=== PATIENT | female | born 1985 | race Caucasian/White ===

== ENCOUNTER → 2017-10-01 12:56 | Outpatient (CLI) | payer BC, SELFPAY ==
[2017-10-01 13:20] LABS: hCG Titer Quant., Serum 33 mIU/mL (<9 non-preg)
== END ==
PROVIDERS: Visit Provider Obstetrics & Gynecology
DX: N97.9 Female infertility, unspecified (principal)
CPT/HCPCS: 36415; 84702

== ENCOUNTER → 2017-10-04 08:35 | Outpatient (CLI) | payer BC, SELFPAY ==
[2017-10-04 10:08] LABS: hCG Titer Quant., Serum 110 mIU/mL (<9 non-preg)
== END ==
PROVIDERS: Visit Provider Obstetrics & Gynecology
DX: Z34.90 Encounter for supervision of normal pregnancy, unspecified, unspecified trimester (principal)
CPT/HCPCS: 36415; 84702

== ENCOUNTER → 2017-10-22 13:59 | Outpatient (CLI) | payer BC, SELFPAY ==
[2017-10-22 20:21] LABS: Chlamydia Trachomatis by PCR Negative (Negative); Neisserai gonorrhoeae by PCR Negative (Negative); Probe Check PASS; Sample Adequacy Control PASS; Specimen Processing Control PASS
[2017-10-27 11:11] LABS: HPV Reflexed? NOT INDICATED
== END ==
PROVIDERS: Visit Provider Obstetrics & Gynecology
DX: Z34.81 Encounter for supervision of other normal pregnancy, first trimester (principal); Z12.4 Encounter for screening for malignant neoplasm of cervix; Z11.3 Encounter for screening for infections with a predominantly sexual mode of transmission
CPT/HCPCS: 87491; 87591; 88175; G0145

== ENCOUNTER → 2017-11-23 16:45 | Outpatient (CLI) | payer BC, SELFPAY ==
[2017-11-23 17:27] LABS: Color, Urine Yellow (Yellow); Glucose, Dipstick Normal (Normal); Ketone-Dipstick Negative (Negative); Leukocyte Esterase-Dipstick 500 /ul (Negative); Nitrite-Dipstick Negative (Negative); Occult Blood-Urine 10 /ul (Negative); Protein-Dipstick Negative (Negative); Specific Gravity, Urine 1.015 (1.002-1.030); Urine Bilirubin Dipstick Negative (Negative); Urine Clarity Sl. Cloudy (Clear); Urine Urobilinogen Normal (Normal)
[2017-11-23 18:03] LABS: Absolute Lymphocyte Count 1.63 X10^3/ul (0.83-4.51); Absolute Neutrophil Count 7.1 X10^3/uL (2.0-7.7); Basophil# 0.02 X10^3/uL; Basophil% 0.2 % (0-1); Eosinophil# 0.07 X10^3/uL; Eosinophils% 0.8 % (0-5); Hematocrit 35.7 % (37-47); Hemoglobin 12.3 g/dl (12.0-15.0); Lymphocyte # 1.63 X10^3/ul (4.0); Lymphocyte % 17.6 % (19-41); Mean Corp Hgb Conc 34.5 g/gl (32-36); Mean Corpuscular Hgb 31.1 pg (27.0-32.0); Mean Corpuscular Volume 90.4 fL (81-99); Mean Platelet Vol. 10.2 fl (6.2-12.0); Monocyte# 0.46 X10^3/uL; Neutrophil # 7.08 X10^3/uL (2.7-7.7); Neutrophil % 76.2 % (47-70); Platelet Count 273 K/mm3 (150-450); RBC Distribution Width CV 11.4 % (11.6-14.6); RBC Distribution Width SD 36.8 fl (35.1-43.9); Red Blood Count 3.95 M/mm3 (4.2-5.4); White Blood Count 9.3 K/mm3 (4.4-11.0)
[2017-11-23 18:18] LABS: POSITIVE COUNT NO; POSITIVE DIFFERENTIAL NO; POSITIVE MORPHOLOGY NO
[2017-11-23 18:54] LABS: Thyroid Stim Hormone (TSH) 0.09 uIU/mL (0.358-3.74)
[2017-11-24 11:12] LABS: HIV - WCH Non-Reactive (Nonreactive)
[2017-11-24 15:06] LABS: Free T3 3.1 pg/mL (2.18-3.98); T4 Free Direct 0.88 ng/dL (0.76-1.46)
[2017-11-25 16:18] LABS: HEPATITIS B SURFACE AG Negative (Negative); Hep C Antibodies 0.1 s/co ratio (0.0-0.9)
[2017-11-26 01:34] LABS: Prenatal RPR NONREACTIVE (NONREACTIVE)
== END ==
PROVIDERS: Visit Provider Obstetrics & Gynecology
DX: Z34.81 Encounter for supervision of other normal pregnancy, first trimester (principal)
CPT/HCPCS: 36415; 81002; 84439; 84443; 84481; 85025; 86703; 86762; 86803; 87340

== ENCOUNTER → 2018-03-28 | Outpatient (CLI) | payer BC, SELFPAY ==
[2018-03-28 11:02] LABS: Hematocrit 27.5 % (37-47); Hemoglobin 9.2 g/dl (12.0-15.0); Mean Corp Hgb Conc 33.5 g/gl (32-36); Mean Corpuscular Hgb 31.7 pg (27.0-32.0); Mean Corpuscular Volume 94.8 fL (81-99); Mean Platelet Vol. 9.7 fl (6.2-12.0); Platelet Count 346 K/mm3 (150-450); RBC Distribution Width CV 12.4 % (11.6-14.6); RBC Distribution Width SD 41.5 fl (35.1-43.9); Scan Indicated on CBC? Y/N NO; White Blood Count 12.4 K/mm3 (4.4-11.0)
[2018-03-28 11:03] LABS: Glucose Challenge Gest 1H 50g 86 mg/dL (70-140)
== END | disposition home or self-care (01) ==
LOC: WOBLAB 08:48
PROVIDERS: Visit Provider Obstetrics & Gynecology
DX: Z34.83 Encounter for supervision of other normal pregnancy, third trimester (principal)
CPT/HCPCS: 36415; 82950; 85027; 86850

== ENCOUNTER → 2018-05-13 16:41 | Outpatient (CLI) | payer BC, SELFPAY | PROVIDERS: Visit Provider Obstetrics & Gynecology | DX: Z36.85 Encounter for antenatal screening for Streptococcus B (principal) | CPT/HCPCS: 87081 ==

== ENCOUNTER 2018-06-26 18:40 | Inpatient (IN) | payer BC, SELFPAY ==
[2018-06-26 19:29] VITALS: BMI 24.6
[2018-06-26] MEDS: 0.9% Saline Lock 10 ML Syringe IV (19:45)
[2018-06-26 20:23] LABS: Hemoglobin 11.1 g/dl (12.0-15.0); Mean Corp Hgb Conc 33.6 g/gl (32-36); Mean Corpuscular Hgb 31.2 pg (27.0-32.0); Mean Corpuscular Volume 92.7 fL (81-99); Mean Platelet Vol. 9.5 fl (6.2-12.0); Platelet Count 317 K/mm3 (150-450); RBC Distribution Width CV 12.8 % (11.6-14.6); RBC Distribution Width SD 43.2 fl (35.1-43.9); Red Blood Count 3.56 M/mm3 (4.2-5.4); White Blood Count 11.3 K/mm3 (4.4-11.0)
[2018-06-26 20:24] LABS: Scan Indicated on CBC? Y/N NO
[2018-06-26] MEDS: miSOPROStol 25 MCG TABLET PO (20:37)
--- NOTE | 2018-06-26 21:19 | PCM.HP.OB ---
- Problem List (1) 41 weeks gestation of Status: Acute History Date of Admission: 06/26/18 Final CHOLO: 06/17/18 Final CHOLO Source: US <20 weeks Gestational age: 41 Weeks and 2 Days History of this : This is a 32 year-old, G [1], P [0], at 41 2/7 weeks gestational age admitted for induction of labor. She feels well and is without complaints. + FM. Medical History: Medical History (Last Updated 06/26/18 @ 21:27 by Daisy Love MD) History of in vitro fertilization Z98.890 failed x 1 with subsequent spontaneous conception Chronic headaches R51 Surgical History: Surgical History (Last Updated 06/26/18 @ 21:22 by Daisy Love MD) History of dental surgery Z92.89 implant - maxillary teeth Allergies amoxicillin Allergy (Verified 06/26/18 20:11) Other - yeast infection latex Allergy (Verified 06/26/18 20:11) Itching Home Medications: Home Medications Acetaminophen [Tylenol Extra Strength] 500 mg PO Q4H PRN PRN 06/26/18 Ferrous Gluconate 324 mg PO 06/26/18 Pnv,Calcium 72/Iron/Folic Acid [ Plus Tablet] 1 each PO 06/26/18 Smoking Status: Former smoker Alcohol: None Number of Fetus(es): 1 Heart Tracin, moderate variability, + accelerations, no decelerations TOCO Analysis: 2/10 min History Past Pregnancies: Past Pregnancies Delivery Date Name GA/Weeks Outcome Route Weight Infant Gender Labor Length Anesthesia Delivery Location Provider FOB Labs: Mom's Problem List Problem Status Onset Code 41 weeks gestation of Acute Z3A.41 Mom's Labs & Results 06/26/18 06/26/18 19:45 19:45 WBC 11.3 H RBC 3.56 L Hgb 11.1 L Hct 33.0 L MCV 92.7 MCH 31.2 MCHC 33.6 RDW 12.8 RDW Differential 43.2 Plt Count 317 MPV 9.5 Blood Type O NEGATIVE Antibody Screen NEGATIVE Course Did the patient receive Yes care? Labs Blood Type: O RH: NEGATIVE RPR/VDRL/Syphilis Nonreactive Rubella status Immune HbSAg Negative Date Done: 11/23/17 Chlamydia Negative Gonorrhea Negative HIV/AIDS Non-Reactive Group B Strep: Negative NIPT - 46 XX Current Obstetrical History Gestational Diabetes No Incompetent Cervix No Infertility Yes: was not taking medication currently to get IUGR No Macrosomia No Hypertension/Pre-eclampsia No Placenta Previa/Abruption No PTL/PROM No Uterine anomaly No Oligohydramnios No Polyhydramnios No Multiple gestation No Past Medical History Asthma No Diabetes No Hypertension No Heart disease No Mitral valve prolapse No Neurologic/Seizure disorder/ Yes Migraines Kidney disease No Liver disease No Varicosities No Clotting disorders/Hx of DVT No Thyroid Dysfunction No Other medical diseases No Psychiatric disorders No Major trauma No Abnormal PAP smear No Sleep apnea No Mammogram in the last 2 years No Medications Taken During Last Date/Time of Medication several months ago, pt does not know exact time Taken: [zpac] Reason for taking medication [ sinus infection zpac] Social History Marital Status: Alleged father Genaro Mckeon Hx Smoking Yes Smoking Status Former smoker Expected Infant Delivery Method: Spontaneous Vaginal Number of Visits: 13 Physical Exam Vitals: AVSS General: Alert, Oriented x3, Cooperative, No apparent distress HEENT: Atraumatic, Normocephalic Cardiovascular: Regular rate Lungs: Normal air movement Abdomen: Soft, Non Tender, Non-Distended Extremities:: No edema Neurological: Neuro grossly intact Estimated gestational size: Appropriate for gestational size Presentation: Cephalic Cervix Dilation (cm): 1 Station: -3 Effacement (%): 50 Assessment/Plan All Active Problems (Last Updated 06/26/18 @ 21:27 by Daisy Love MD) 41 weeks gestation of (Acute) This is a 32 year-old, G [1], P [0], at 41 weeks gestational age for induction of labor, Cat I FHR -Misoprostol 25mcg x 1 given. -Regular diet given Cat I FHR on misoprostol. -GBS negative -Maternal and statuses reassuring -LARC declined, form signed -Reviewed with patient r/b induction of labor and labor/delivery including but not limited to distress, pain, bleeding or hemorrhage, infection, need for operative vaginal delivery, further surgery or emergent intervention, possibly including dilation and curettage, C/S or hysterectomy. -Patient given opportunity to ask questions and questions answered to her satisfaction.
[2018-06-26] MEDS: Acetaminophen 325 MG Tablet PO (23:06)
[2018-06-27] MEDS: miSOPROStol 25 MCG TABLET PO ×2 (00:28→04:26)
--- NOTE | 2018-06-27 07:34 | PCM.PN.BLA ---
Progress Note INDUCTION OF LABOR 41 3/7 wk Cytotec overnight, last at 04:30 am States poor sleep d/t awareness of monitor and belts. Not painful and feeling only tightening AVSS EFM 110-120s avg variability. Accels. Reassuring EFM, category I, intermittent tracing UCs q2-4 min+ remain irregular CX: FT/80/-2 anterior AROM light meconium A/P: 41 3/7 wk induction , unfavorable cervix. Cytotec overnight. AROM. Begin Pitocin at 8:30 am Continue labor induction. Peds and RT to be present for delivery 2/2 meconium Light regular breakfast, then to labor liquids.
[2018-06-27] MEDS: 0.9% Saline Lock 10 ML Syringe IV (07:50)
[2018-06-27] MEDS: Lactated Ringers 1,000 ML 50 ML IV ×4 (07:53→23:58)
[2018-06-27] MEDS: Acetaminophen 325 MG Tablet PO ×3 (08:19→22:09)
[2018-06-27] MEDS: Oxytocin 30 units/NS 500 ml 30 UNITS/500 ML IV.SOLN IV (08:32)
--- NOTE | 2018-06-27 13:21 | PCM.PN.BLA ---
Progress Note LABOR PROGRESS NOTE Uncomfortable. Declines any medication at this point. AVSS pitocin at 4 mIU/min EFM category I tracing UCs q 2-4 + mins CX: 4/80/-2 anterior + caput noted. A/P: 41 3/7 wk induction. Continue pitocin reviewed options for pain relief in labor. Declines for now. Encouraged position changes.
[2018-06-27] MEDS: fentaNYL-bupivacaine (epidural) 100 ML BAG EPIDURAL ×3 (14:07→23:53)
[2018-06-27] MEDS: Ondansetron 4 MG/2 ML Vial IV (15:23)
--- NOTE | 2018-06-27 17:46 | PCM.PN.BLA ---
Progress Note LABOR PROGRESS NOTE Induction 41 3/7 wk EGA Comfortable w/ epidural AVSS Pitocin induction after AROM, Cytotec prior to AROM/Pit EFM 120s - 130s avg variability with accels. Category I tracing UCs q 2-3 mins CX: 6/80/-3 LOP Caput noted. IUPC place to guide Pitocin A/P: 41 3/7 wk induction of labor. continue Pitocin Watch for continued progress, descent. Position changes
--- NOTE | 2018-06-27 23:05 | PCM.PN.BLA ---
Progress Note LABOR PROGRESS NOTE Temp to 100.5 now 99.5 deg Tylenol given for persistent CHAPPELL. Ampicillin 2 gm IV given Pitocin at 12 mIU/min EFM: 140s with accels. Category I tracing UCs q 2-4 min coupling/tripling and spacing. CX: Much caput. LOP? 8+/soft/90/-2 A/P: 41 3/7 going on 41 4/7 wk EGA. Induction Cytotec. AROM this am at approx 7 am. Continue labor. Very slow but continued cervical change. Advised of potential for C/S delivery.
[2018-06-28] VITALS (25 sets, daily range): BP systolic 89–122; BP diastolic 42–70; PULSE 69–106; RESP 14–20; TEMP 36.2–40.3; O2SAT 95–100
--- NOTE | 2018-06-28 01:19 | PCM.PN.BLA ---
Progress Note LABOR PROGRESS NOTE 41 4/7 wk induction, Cytotec to AROM Pitocin Slow progress since 3 pm 06/27/18 to 9 1/2 cm with with persistent cervix posteriorly on exam, with significant caput no further descent Maternal fever Maternal tachycardia EFM 140s to 150s with several non repetitive late decelerations. UCs q 2 mins A/P: 41 4/7 wk . Cephalopelvic disproportion. Maternal fever, tachycardia. Advised primary C/S delivery.
--- NOTE | 2018-06-28 01:25 | PN_ITS ---
Progress Note LABOR PROGRESS NOTE 41 4/7 wk induction, Cytotec to AROM Pitocin Slow progress since 3 pm 06/27/18 to 9 1/2 cm with with persistent cervix po steriorly on exam, with significant caput no further descent Maternal fever Maternal tachycardia EFM 140s to 150s with several non repetitive late decelerations. UCs q 2 mins A/P: 41 4/7 wk . Cephalopelvic disproportion. Maternal fever, tachycardia. Advised primary C/S delivery.
[2018-06-28] MEDS: Sodium Citrate/Citric Acid 30 ML UDC PO (01:28)
--- NOTE | 2018-06-28 01:29 | PCM.DCCSEC ---
Discharge Diet: No Restrictions May resume sexual activity in: 4-6 weeks Lifting Restrictions: 20 pounds Additional Activity Instructions:: Nothing in the vagina for 4-6 weeks. You may return to work/school in 6 weeks. Change Dressing in (Days):: 7 Remove Dressing in (days):: 7 Cleanse incision/area with: Soap & Water, Keep Dressing Clean & Dry Additional Instructions: If you experience any of the following, contact your healthcare provider. Bleeding that soaks a pad every hour for 2 hours Fever 100.4 or higher Unrelieved incision or abdominal pain Swelling, redness, discharge or bleeding from your incision Problems urinating (including inability to urinate or burning while urinating). Visual changes Severe headache Flu-like symptoms Pain or redness in one of both of your breasts Pain, warmth, tenderness or swelling in your legs, especially the calf area Frequent nausea and vomiting Symptoms of depression or anxiety If you experience any of the following, call 911 or go to the nearest Emergency Room. Chest pain Problems breathing Seizure activity Partial or complete paralysis of a body part, slurred speech, weakness or drooping of the face, or a sudden inability to walk or hold your balance Allergies/Adverse Reactions: Allergies amoxicillin Allergy (Verified 06/27/18 21:58) Other yeast infection latex Allergy (Verified 06/26/18 20:11) Itching Medications to take at Discharge RX: Pnv,Calcium 72/Iron/Folic Acid [ Plus Tablet] 1 each PO 06/26/18 Docusate Sodium [Colace] 100 mg PO BID #30 capsule 06/28/18 Naproxen [Naprosyn] 250 - 500 mg PO TID PRN PRN #30 tablet 06/28/18 Oxycodone [Oxyir] 5 - 10 mg PO Q6H PRN PRN 7 Days #20 tablet 06/28/18 Polyethylene Glycol 3350 [Miralax] 17 gm PO DAILY PRN #14 packet 06/28/18 RX: Acetaminophen [Tylenol Tablet] 325 - 650 mg PO Q4H PRN PRN tablet 06/28/18 The following prescriptions were given: Oxycodone [Oxyir] 5 - 10 mg PO Q6H PRN PRN 7 Days #20 tablet PRN Reason: Mod-Severe Pain () Naproxen [Naprosyn] 250 - 500 mg PO TID PRN PRN #30 tablet PRN Reason: Mild-Mod Pain (-08/26) Polyethylene Glycol 3350 [Miralax] 17 gm PO DAILY PRN #14 packet PRN Reason: Constipation Docusate Sodium [Colace] 100 mg PO BID #30 capsule Follow-Up: Call to make an appointment with your doctor for an incision check in 1-2 weeks. You will also need a 6 week post- follow up appointment. Test results from this visit will be discussed in further detail at your follow-up appointment, if applicable. Please Follow Up With: Nery Bacon MD - [phone] When: Call to make an appointment for an incision check in 2 weeks. Proposed Discharge Date: 07/01/18
--- NOTE | 2018-06-28 01:35 | DCINST_ITS ---
Discharge Diet: No Restrictions May resume sexual activity in: 4-6 weeks Lifting Restrictions: 20 pounds Additional Activity Instructions:: Nothing in the vagina for 4-6 weeks. You may return to work/school in 6 weeks. Change Dressing in (Days):: 7 Remove Dressing in (days):: 7 Cleanse incision/area with: Soap & Water, Keep Dressing Clean & Dry Additional Instructions: If you experience any of the following, contact your healthcare provider. * Bleeding that soaks a pad every hour for 2 hours * Fever 100.4 or higher * Unrelieved incision or abdominal pain * Swelling, redness, discharge or bleeding from your incision * Problems urinating (including inability to urinate or burning while urinating). * Visual changes * Severe headache * Flu-like symptoms * Pain or redness in one of both of your breasts * Pain, warmth, tenderness or swelling in your legs, especially the calf area * Frequent nausea and vomiting * Symptoms of depression or anxiety If you experience any of the following, call 911 or go to the nearest Emergency Room. * Chest pain * Problems breathing * Seizure activity * Partial or complete paralysis of a body part, slurred speech, weakness or drooping of the face, or a sudden inability to walk or hold your balance Allergies/Adverse Reactions: Allergies amoxicillin Allergy (Verified 06/27/18 21:58) Other yeast infection latex Allergy (Verified 06/26/18 20:11) Itching Medications to take at Discharge RX: Pnv,Calcium 72/Iron/Folic Acid [ Plus Tablet] 1 each PO 06/26/18 Docusate Sodium [Colace] 100 mg PO BID #30 capsule 06/28/18 Naproxen [Naprosyn] 250 - 500 mg PO TID PRN PRN #30 tablet 06/28/18 Oxycodone [Oxyir] 5 - 10 mg PO Q6H PRN PRN 7 Days #20 tablet 06/28/18 Polyethylene Glycol 3350 [Miralax] 17 gm PO DAILY PRN #14 packet 06/28/18 RX: Acetaminophen [Tylenol Tablet] 325 - 650 mg PO Q4H PRN PRN tablet 06/28/18 The following prescriptions were given: Oxycodone [Oxyir] 5 - 10 mg PO Q6H PRN PRN 7 Days #20 tablet PRN Reason: Mod-Severe Pain () Naproxen [Naprosyn] 250 - 500 mg PO TID PRN PRN #30 tablet PRN Reason: Mild-Mod Pain (1-08/26) Polyethylene Glycol 3350 [Miralax] 17 gm PO DAILY PRN #14 packet PRN Reason: Constipation Docusate Sodium [Colace] 100 mg PO BID #30 capsule Follow-Up: Call to make an appointment with your doctor for an incision check in 1-2 weeks. You will also need a 6 week post- follow up appointment. Test results from this visit will be discussed in further detail at your follow- up appointment, if applicable. Please Follow Up With: Nery Bacon MD - [phone] When: Call to make an appointment for an incision check in 2 weeks. Proposed Discharge Date: 07/01/18
[2018-06-28] MEDS: Cefazolin 2 GM in 0.9% Normal Saline 100 ML IV (01:50)
[2018-06-28] MEDS: Oxytocin 30 units/NS 500 ml 30 UNITS/500 ML IV.SOLN 167 UNITS IV (01:59)
--- NOTE | 2018-06-28 02:00 | PLAC_PTH ---
PATIENT: ALEKS GREGORIO LOC: [facility] U#:[id number] AGE/SX: 32/F ROOM: WP005 RE06/26/[address]: Dr. Daisy Thomas MD : 1985 BED: 1 DIS: 07/01/2018 SPEC #: [id number] RECD: 06/28/18 08:07 STATUS: TIMOTHY AYUSH #: [id number] KARINA: 06/28/18 02:[address]: Nery Bacon DEPT: SURGICAL PATHOLOGY RECD BY: Reji Juarez ENTERED: 06/28/18 08:41 SP TYPE: PLACENTA OTHR DR: Dr. Daisy Thomas MD Tissues: Placenta, NOS Procedures: Surgery Specimen Level V HEADER OPERATION: Primary section PRE-OP DIAGNOSIS: Fever TISSUE SUBMITTED: Placenta MICROSCOPIC DIAGNOSIS Turk placenta (727 gm): Umbilical cord - trivascular with acute funisitis. Placental membranes - mild acute deciduitis. Placental disc - acute vasculitis of superficial placental vessels, Brandan-Gordon change, mild intravillous congestion and mild chronic decidual inflammation. AM:juliana 06/30/18 MICROSCOPIC DESCRIPTION Slides are reviewed. GROSS DESCRIPTION SPECIMEN: PLACENTA / CLINICAL INFORMATION: A. Weight: 4.15 kg B. Gestational Age: 41 weeks C. Sex: Female PLACENTAL WEIGHT (POST FIXATION): 727 gm PLACENTAL DIMENSIONS: 21 x 18 x 3 cm PLACENTAL SHAPE: Usual ovoid PLACENTAL WEIGHT FOR GESTATIONAL AGE: Over 99th percentile MEMBRANES - Present A. Insertion: Marginal B. Site of rupture from edge: At edge of placental disc C. Color of membrane: Duarte-mucoidy D. Abnormalities: None UMBILICAL CORD - Present A. Color: Duarte-portillo B. Insertion: Paracentral C. Length: 35 cm D. Diameter: 1.3 cm E. Number of vessels: Three F. Abnormalities: The umbilical cord show focal area of increased spiraling. PLACENTAL DISC - Present A. Color of surface: Duarte-portillo B. surface abnormalities: None C. Maternal cotyledons: Intact with minimal tears D. Attached retro placental clot: No clot E. Cut surface: Dark red and spongy F. Lesions: None G. Separate clot: Absent SECTIONS SUBMITTED: 1. Membrane roll 2. Cord, maternal end 3. Cord, end 4. Placental disc, and maternal surfaces 5. Placental disc, and maternal surfaces 6. Placental disc, and maternal surfaces SJ:juliana 06/29/18 TC:2 CPT: 37076
[2018-06-28] MEDS: Methylergonovine 0.2 MG/ML Ampul IM (02:02)
--- NOTE | 2018-06-28 02:24 | PCM.OPRPT ---
Delivery Classification: LUIS FERNANDO Final CHOLO: 06/17/18 Final CHOLO Source: US <20 weeks Gestational age: 41 Weeks and 4 Days Indications: CPD. no descent Findings: At amniotomy, moderate meconium stained fluid was noted. Turk viable female in vertex presentation. unengaged in maternal pelvis Persistent OP. significant capt noted Apgars 6/8/9, Baby weight: 9# 2 oz There was a normal appearing uterus, fallopian tubes and ovaries bilaterally. Description of Procedure: PATH: Routine cord blood for typing collected. Routine cord gases were sent. Narrative account: After the risks, benefits and alternatives of the procedure were reviewed with the patient, informed consent was obtained. The patient was taken to the Operating room with an IV running, Dowling catheter in place and epidural catheter in place. She was positioned in dorsal supine position, and was briefly frog-legged for vaginal vault prep and and then repositioned to dorsal supine position with leftward displacement of the uterus, and prepped and draped in the usual sterile fashion. Once the epdiural was deemed adequate, a Pfannenstiel skin incision was created using the knife . The incision was carried down to the rectus fascia using the knife. The fascia was nicked in the midline. The fascial incision was extended bilaterally using curved Royal scissors. The superior aspect of the fascial incision was grasped with Esperanza clamps and tented up and the underlying rectus abdominal muscles were dissected free. In a similar manner, the inferior aspect of the facial incision was grasped with Esperanza clamps tented up and the underlying rectus abdominal muscles were dissected free. The rectus abdominis muscles were in the midline and the peritoneum was identified and entered by blunt dissection high in the incision. The peritoneum was stretched laterally and a bladder blade was inserted. The bladder was edematous but retracted back out of the way. The uterine incision was then created using Metzenbaum scissors. The operators fingertips were used to extend the uterine incision by blunt dissection in a caudad- cephalad orientation . Meconium stained fluid was noted at amniotomy. The vertex was then delivered atraumatically through the incision from OP position. The OP and nares were bulb suctioned on the abdomen. The shoulders delivered easily . The cord clamped x two and cut. And the infant was handed off to the nurse awaiting delivery after briefly showing her to her parents. The baby had a spontaneous cry. A segment of the umbilical cord was clamped off then. The placenta was delivered. The uterus was exteriorized and cleared of clots and debris . The needle punch machine operator helper's gloves were changed. The uterine incision was repaired with 1 Vicryl in a running locked fashion. A second imbricating layer was then placed, using 1 Monocryl in running nonlocked fashion. Bovie cautery was used to treat any bleeding areas . At this point the uterus was returned to the abdominal cavity. The gutters were cleared of clots and debris and the incision at the uterus was inspected. The pelvis and abdomen were copiously irrigated. Maine was applied along the entire incision for continued hemostasis. Excellent hemostasis was noted. The peritoneal edges were reapproximated in the midline along with the rectus abdominis muscles with a series of vertical mattress stitches of 1-0 Vicryl. This layer was copiously irrigated. Maine was applied to this layer. The fascia was closed in a running nonlocked fashion with a Stratofix. The Subcutaneous fatty tissue was copiously irrigated. Maine was dusted at this layer to prevent seroma formation. This layer was then reapproximated in a single layer closure of running 3-0 Vicryl to eliminate space. The skin edges were closed in a Subcuticular stitch of 4-0 Monocryl. The incision was cleansed. Cavilon, Steristrips, and Mepilex dressing were applied to the skin . The patient was then transferred to the recovery room bed in stable condition after tolerating the procedure well. Sponge, lap, needle and instrument counts correct times two. Medications given preop and intraoperatively included: Ancef 2 gm IV given application architect to the operating room. the patient also received gentamicin IV prior to the OR due to maternal fever (she had already been given Ampicillin 2 gm IV earlier in labor for lower gr temp) The patient received Pitocin given IV after cord clamp, Methergine 0.2 gm IM in R thigh for uterine atony , and Toradol 30 mg IV times one. For a complete listing of medications given preop and intraoperatively, please see the anesthesia record. Amniotic Membrane Rupture Type: Artificial Amniotic Fluid Description: Clear Placenta Disposition: Sent to Pathology Specimen(s) sent to pathology: cord blood, gases, cord blood cultures Drain: Dowling to straight drain Fluids Replaced: LR Cord Entanglement: None Cord Vessel Description: 3 Vessels Esitmated Blood Loss (ml): 800 Infant Gender: Female (1 minute): 6 (5 minute): 8 Delayed cord clamping: No Pre-op Antibiotic Given: Ancef 2 grams IV x1 - Getamicin IV Pt instructed on risks of surgery: Bleeding, Infection Complications: None - Admit VTE Documentation VTE Present on Admission: No VTE Mechan Device Prophylaxis: SCD's VTE Pharm Prophylaxis ordered?: No
--- NOTE | 2018-06-28 02:35 | OP.PCM_ITS ---
Delivery Classification: LUIS FERNANDO Final CHOLO: 06/17/18 Final CHOLO Source: US <20 weeks Gestational age: 41 Weeks and 4 Days Indications: CPD. no descent Findings: At amniotomy, moderate meconium stained fluid was noted. Turk viable female in vertex presentation. unengaged in maternal pelvis Persistent OP. significant capt noted Apgars 6/8/9, Baby weight: 9# 2 oz There was a normal appearing uterus, fallopian tubes and ovaries bilaterally. Description of Procedure: PATH: Routine cord blood for typing collected. Routine cord gases were sent. Narrative account: After the risks, benefits and alternatives of the procedure were reviewed with the patient, informed consent was obtained. The patient was taken to the Operating room with an IV running, Dowling catheter in place and epidural catheter in place. She was positioned in dorsal supine position, and was briefly frog- legged for vaginal vault prep and and then repositioned to dorsal supine position with leftward displacement of the uterus, and prepped and draped in the usual sterile fashion. Once the epdiural was deemed adequate, a Pfannenstiel skin incision was created using the knife . The incision was carried down to the rectus fascia using the knife. The fascia was nicked in the midline. The fascial incision was extended bilaterally using curved Royal scissors. The superior aspect of the fascial incision was grasped with Esperanza clamps and tented up and the underlying rectus abdominal muscles were dissected free. In a similar manner, the inferior aspect of the facial incision was grasped with Esperanza clamps tented up and the underlying rectus abdominal muscles were dissected free. The rectus abdominis muscles were in the midline and the peritoneum was identified and entered by blunt dissection high in the incision. The peritoneum was stretched laterally and a bladder blade was inserted. The bladder was edematous but retracted back out of the way. The uterine incision was then created using Metzenbaum scissors. The operators fingertips were used to extend the uterine incision by blunt dissection in a caudad- cephalad orientation . Meconium stained fluid was noted at amniotomy. The vertex was then delivered atraumatically through the incision from OP position. The OP and nares were bulb suctioned on the abdomen. The shoulders delivered easily . The cord clamped x two and cut. And the was handed off to the nurse awaiting delivery after briefly showing her to her parents. The baby had a spontaneous cry. A segment of the umbilical cord was clamped off then. The placenta was delivered. The uterus was exteriorized and cleared of clots and debris . The napkin machine operator's gloves were changed. The uterine incision was repaired with 1 Vicryl in a running locked fashion. A second imbricating layer was then placed, using 1 Monocryl in running nonlocked fashion. Bovie cautery was used to treat any bleeding areas . At this point the uterus was returned to the abdominal cavity. The gutters were cleared of clots and debris and the incision at the uterus was inspected. The pelvis and abdomen were copiously irrigated. Maine was applied along the entire incision for continued hemostasis. Excellent hemostasis was noted. The peritoneal edges were reapproximated in the midline along with the rectus abdominis muscles with a series of vertical mattress stitches of 1-0 Vicryl. This layer was copiously irrigated. Maine was applied to this layer. The fascia was closed in a running nonlocked fashion with a Stratofix. The Subcutaneous fatty tissue was copiously irrigated. Maine was dusted at this layer to prevent seroma formation. This layer was then reapproximated in a single layer closure of running 3-0 Vicryl to eliminate space. The skin edges were closed in a Subcuticular stitch of 4-0 Monocryl. The incision was cleansed. Cavilon, Steristrips, and Mepilex dressing were applied to the skin . The patient was then transferred to the recovery room bed in stable condition after tolerating the procedure well. Sponge, lap, needle and instrument counts correct times two. Medications given preop and intraoperatively included: Ancef 2 gm IV given clinical rehabilitation coordinator to the operating room. the patient also received gentamicin IV prior to the OR due to maternal fever (she had already been given Ampicillin 2 gm IV earlier in labor for lower gr temp) The patient received Pitocin given IV after cord clamp, Methergine 0.2 gm IM in R thigh for uterine atony , and Toradol 30 mg IV times one. For a complete listing of medications given preop and intraoperatively, please see the anesthesia record. Amniotic Membrane Rupture Type: Artificial Amniotic Fluid Description: Clear Placenta Disposition: Sent to Pathology Specimen(s) sent to pathology: cord blood, gases, cord blood cultures Drain: Dowling to straight drain Fluids Replaced: LR Cord Entanglement: None Cord Vessel Description: 3 Vessels Esitmated Blood Loss (ml): 800 Infant Gender: Female (1 minute): 6 (5 minute): 8 Delayed cord clamping: No Pre-op Antibiotic Given: Ancef 2 grams IV x1 - Getamicin IV Pt instructed on risks of surgery: Bleeding, Infection Complications: None - Admit VTE Documentation VTE Present on Admission: No VTE Mechan Device Prophylaxis: SCD's VTE Pharm Prophylaxis ordered?: No
--- NOTE | 2018-06-28 02:35 | NURSING ---
gallegos cath leaking from bag. gallegos cath d/c'd and replaced with 16 F latex free gallegos cath, balloon inflated with 10cc NS. pt tolerated well
--- NOTE | 2018-06-28 03:44 | NURSING ---
pt diaphoretic and eating ice chips, suspect temporal temp and oral temp reading lower then actual temperature
[2018-06-28] MEDS: Acetaminophen 325 MG Tablet PO (03:46)
--- NOTE | 2018-06-28 05:31 | NURSING ---
fundus noted to be firm 1 above umbilicus and displaced to the right. moderate amts of lochia noted with fundal check. fundus then returned to umbilicus. pads weighed for 248ml
[2018-06-28] MEDS: HYDROmorphone 0.5 MG/0.5 ML SYRINGE IV (06:12)
[2018-06-28 06:28] LABS: Absolute Lymphocyte Count 0.64 X10^3/ul (0.83-4.51); Absolute Neutrophil Count 19.2 X10^3/uL (2.0-7.7); Basophil# 0.02 X10^3/uL; Basophil% 0.1 % (0-1); Hematocrit 35.2 % (37-47); Hemoglobin 11.7 g/dl (12.0-15.0); Lymphocyte # 0.64 X10^3/ul (4.0); Lymphocyte % 2.9 % (19-41); Mean Corp Hgb Conc 33.2 g/gl (32-36); Mean Corpuscular Hgb 31.4 pg (27.0-32.0); Mean Corpuscular Volume 94.4 fL (81-99); Mean Platelet Vol. 9.7 fl (6.2-12.0); Neutrophil # 19.19 X10^3/uL (2.7-7.7); Neutrophil % 86.8 % (47-70); Platelet Count 292 K/mm3 (150-450); RBC Distribution Width CV 12.6 % (11.6-14.6); RBC Distribution Width SD 41.9 fl (35.1-43.9); Red Blood Count 3.73 M/mm3 (4.2-5.4); White Blood Count 22.1 K/mm3 (4.4-11.0)
[2018-06-28 06:33] LABS: Differential Indicated SCAN CRITERIA MET; POSITIVE COUNT NO; POSITIVE DIFFERENTIAL YES; POSITIVE MORPHOLOGY NO
[2018-06-28 06:51] LABS: Platelet Estimate ADEQUATE (ADEQ)
[2018-06-28] MEDS: Ketorolac 30 MG/ML Syringe IV ×3 (06:51→19:51)
[2018-06-28 06:52] LABS: Anisocytosis RARE; Macrocytosis RARE; Toxic Granulation RARE
--- NOTE | 2018-06-28 07:40 | PN.OBGYN_ITS ---
Patient Problems: Active and Suspected Problems (Last Updated 06/26/18 @ 21:27 by Daisy Thomas MD) 41 weeks gestation of (Acute) Subjective: Day of Delivery Primary C/S CPD Fever in labor Feeling much better. Baby is nursing well. Pain control ok. Got an additional dose of Dilaudid for pain after C/S. RN states she expressed a clot and 240 cc EBL with that. Bleeding now much better. - Physical Exam General: Alert, Oriented x3, Cooperative, No apparent distress HEENT: Atraumatic Neck: Supple Abdomen: Soft - Fundus firm , minimally tender c/w postop status and 1-2 cm inferior to umbilicus. Upper abdomen softly distended and tympanitic Skin: Incision - Mepilex CDI. Neurological: Cranial nerves II-XII grossly intact Psych/Mental Status: Normal Affect Vital Signs Temp Pulse Resp BP Pulse Ox 98.5 F 86 16 111/69 99 06/28/18 07:00 06/28/18 07:00 06/28/18 07:00 06/28/18 07:00 06/28/18 07:00 Oxygen Delivery Method Room Air Weight: 75.75 kg Body Mass Index (BMI) 24.6 Intake and Output for Last 24 Hours 06/26/18 06/27/18 06/28/18 23:59 23:59 23:59 Intake Total 2124 / 2124 1310 / 1310 Output Total 925 / 925 650 / 650 Balance 1199 / 1199 660 / 660 Laboratory Tests Past 24 Hrs 06/28/18 03:55 WBC 22.1 H RBC 3.73 L Hgb 11.7 L Hct 35.2 L MCV 94.4 MCH 31.4 MCHC 33.2 RDW 12.6 RDW Differential 41.9 Plt Count 292 MPV 9.7 Immature Gran % (Auto) 0.200 Neut % (Auto) 86.8 H Lymph % (Auto) 2.9 L Bacon % (Auto) 10.0 Eos % (Auto) 0.0 Baso % (Auto) 0.1 Absolute Neuts (auto) 19.2 H Absolute Lymphs (auto) 0.64 L Total Counted Not Reportable Differential Comment SEE COMMENT Diff Path Review May foll Toxic Granulation RARE Platelet Estimate ADEQUATE Anisocytosis RARE Macrocytosis RARE Medical Necessity - Tobacco Use Smoking Status: Former smoker Assessment/Plan All Active Problems (Last Updated 06/26/18 @ 21:27 by Daisy Love MD) 41 weeks gestation of (Acute) Day of Delivery Primary C/S Maternal fever in labor and T max after delivery of 104 during recovery. CBC ordered with reactive leukocytosis noted. Placenta sent for path at [facility] and Cord blood and gases sent along with cord blood for culture. Blood cultures x two also ordered Ancef and Clindamycin ordered, and will continue today. Pending cultures and observation of fever curve. Consider daily Gentamicin if further T max. AVSS at present. ABX given including: ampicillin in labor. Ancef and Gentamicin prior to C/S. Clindamycin added postop for T max during recovery. Continuing Ancef. Repeat CBC POD#1 Continue Dowling and IV today. Continue care f.
[2018-06-28] MEDS: proMETHazine 25 MG/ML Syringe 12.5 MG IV (07:44)
[2018-06-28] MEDS: Cefazolin 1 GM/50 ML BAG IV ×2 (10:46→18:02)
[2018-06-28 13:50] LABS: Pathologist Review Reviewed
[2018-06-28] MEDS: Prenatal Vits Tablet 1 TABLET PO (14:06)
[2018-06-28] MEDS: Lactated Ringers 1,000 ML 100 ML IV (14:28)
[2018-06-28] MEDS: Acetaminophen 500 MG Tablet 1000 MG PO (20:48)
[2018-06-29 00:25] VITALS: PULSE 86; RESP 16; O2SAT 100
[2018-06-29] MEDS: Lactated Ringers 1,000 ML 100 ML IV (00:56)
[2018-06-29] MEDS: Ketorolac 30 MG/ML Syringe IV ×4 (00:57→19:39)
[2018-06-29 01:13] VITALS: BP 98/56; PULSE 81; RESP 16; TEMP 36.7; O2SAT 99
[2018-06-29 02:00] VITALS: PULSE 88; RESP 16; O2SAT 97
[2018-06-29] MEDS: oxyCODONE 5 MG Tablet PO ×5 (03:40→23:56)
[2018-06-29] MEDS: 0.9% Saline Lock 10 ML Syringe IV ×6 (05:23→19:39)
[2018-06-29 05:41] LABS: Hematocrit 27.2 % (37-47); Mean Corp Hgb Conc 33.1 g/gl (32-36); Mean Corpuscular Hgb 31.1 pg (27.0-32.0); Mean Corpuscular Volume 94.1 fL (81-99); Mean Platelet Vol. 9.1 fl (6.2-12.0); Platelet Count 264 K/mm3 (150-450); RBC Distribution Width CV 13.1 % (11.6-14.6); RBC Distribution Width SD 44.8 fl (35.1-43.9); Red Blood Count 2.89 M/mm3 (4.2-5.4); White Blood Count 23.9 K/mm3 (4.4-11.0)
[2018-06-29 05:43] LABS: Scan Indicated on CBC? Y/N NO
[2018-06-29 08:00] VITALS: BP 90/50; PULSE 89; RESP 18; TEMP 37.6
--- NOTE | 2018-06-29 08:07 | PN.OBGYN_ITS ---
Patient Problems: Active and Suspected Problems (Last Updated 06/26/18 @ 21:27 by Daisy Thomas MD) 41 weeks gestation of (Acute) Subjective: POD#1 Primary C/S. Prolonged labor. maternal fever and tachycardia in labor. Now with persistent and increasing leukocytosis. Likely chorioamnionitis in labor (final testing pending) AND now with persistent endomyometritis. Pain control adequate. nursing well. No concerns voiced. Dowling out for voiding trial. IV to Saline lock. Objective: Holding and nursing baby Wincing a little and grasps her L shoulder. (shoulder pain on R and L sides likely to room air under diaphragm after surgery -- advised of cause and will resolve) - Physical Exam General: Alert, Oriented x3, Cooperative, No apparent distress HEENT: Atraumatic Neck: Supple Abdomen: Soft - Fundus firm tender at approx 2 cm inferior to umbilicus Skin: Incision - Mepilex on, CDI. no erythema surrounding dressing Psych/Mental Status: Normal Affect Vital Signs Temp Pulse Resp BP Pulse Ox 98.0 F 88 16 98/56 L 97 06/29/18 01:13 06/29/18 02:00 06/29/18 02:00 06/29/18 01:13 06/29/18 02:00 Oxygen Delivery Method Room Air Weight: 75.75 kg Body Mass Index (BMI) 24.6 Intake and Output for Last 24 Hours 06/27/18 06/28/18 06/29/18 23:59 23:59 23:59 Intake Total 2124 / 2124 3102 / 3102 1103 / 1103 Output Total 925 / 925 1450 / 1450 1000 / 1000 Balance 1199 / 1199 1652 / 1652 103 / 103 Laboratory Tests Past 24 Hrs 06/28/18 06/28/18 06/29/18 03:55 03:55 05:30 WBC 23.9 H RBC 2.89 L Hgb 9.0 L Hct 27.2 L MCV 94.1 MCH 31.1 MCHC 33.1 RDW 13.1 RDW Differential 44.8 H Plt Count 264 MPV 9.1 Diff Path Review Reviewed Screen NEGATIVE Baby's Blood Type O POSITIVE Baby's ELICIA NEGATIVE Medical Necessity - Tobacco Use Smoking Status: Former smoker Assessment/Plan All Active Problems (Last Updated 06/26/18 @ 21:27 by Daisy Love MD) 41 weeks gestation of (Acute) POD#1 Primary C/S 1. Maternal fever in labor and T max after delivery of 104.5 during recovery. Remains AFEB since then BUT with persistently elevated WBCs. Advised pt that her likely diagnosis chorioamnionitis in labor and persistent endomyometritis But final studies pending. CBC ordered for POD#2 to reassess response of WBCs to additional antibiotics to be added today. Placenta sent for path at [facility] and cord blood for culture-- pending Blood cultures x two also ordered -- Pending Ancef and Clindamycin ordered, and will continue today. Add daily Gentamicin due to persistent and increasing leukocytosis. 2. Postoperative , acute blood loss anemia. Iron supplement to be started today RhoGAM given Continue care
[2018-06-29] MEDS: Senna/Docusate Sodium 1 Tablet PO (08:34)
[2018-06-29] MEDS: Prenatal Vits Tablet 1 TABLET PO (10:55)
[2018-06-29] MEDS: Ferrous Sulfate 325 MG Tablet PO ×2 (10:55→18:31)
[2018-06-29 14:00] VITALS: BP 92/53; PULSE 94; RESP 16; TEMP 37.1
[2018-06-29 19:44] VITALS: BP 95/56; PULSE 99; RESP 16; TEMP 37.7; O2SAT 98
[2018-06-30] MEDS: Ketorolac 30 MG/ML Syringe IV (01:39)
[2018-06-30] MEDS: 0.9% Saline Lock 10 ML Syringe IV ×3 (01:39→22:03)
[2018-06-30 01:44] VITALS: BP 95/54; PULSE 91; RESP 14; TEMP 37.2; O2SAT 98
[2018-06-30] MEDS: Senna/Docusate Sodium 1 Tablet PO (04:39)
[2018-06-30 05:22] LABS: Hemoglobin 8.4 g/dl (12.0-15.0); Mean Corp Hgb Conc 32.3 g/gl (32-36); Mean Corpuscular Hgb 31.2 pg (27.0-32.0); Mean Corpuscular Volume 96.7 fL (81-99); Mean Platelet Vol. 8.8 fl (6.2-12.0); Platelet Count 307 K/mm3 (150-450); RBC Distribution Width CV 12.7 % (11.6-14.6); RBC Distribution Width SD 42.9 fl (35.1-43.9); Red Blood Count 2.69 M/mm3 (4.2-5.4); White Blood Count 14.8 K/mm3 (4.4-11.0)
[2018-06-30 05:26] LABS: Scan Indicated on CBC? Y/N NO
[2018-06-30 07:40] VITALS: BP 115/48; PULSE 85; RESP 18; TEMP 37.2; O2SAT 100
[2018-06-30] MEDS: oxyCODONE 5 MG Tablet PO ×3 (08:02→18:11)
--- NOTE | 2018-06-30 08:34 | PN.OBGYN_ITS ---
Patient Problems: Active and Suspected Problems (Last Updated 06/26/18 @ 21:27 by Daisy Thomas MD) 41 weeks gestation of (Acute) Subjective: POD#2 Primary C/S for CPD. prolonged labor, materal temp and tachycardia in labor. Postop endomyometritis States abdomen sore, especially over uterus. relates much pain with examinations. Continues to nurse. No concerns voiced otherwise. States still gassy. Plans to stay and encouraged this to allow continued antibiotics now. - Physical Exam General: Alert, Oriented x3, Cooperative, No apparent distress HEENT: Atraumatic Neck: Supple Abdomen: Soft - No rebound. Much voluntary guarding. Uterus tender to palpation, Firm at 2 cm inferior to umbilicus Skin: Incision - Mepilex CDI. no erythema of skin surrounding dressing. Psych/Mental Status: Normal Affect Vital Signs Temp Pulse Resp BP Pulse Ox 99 F 85 18 115/48 L 100 06/30/18 07:40 06/30/18 07:40 06/30/18 07:40 06/30/18 07:40 06/30/18 07:40 Oxygen Delivery Method Room Air Weight: 75.75 kg Body Mass Index (BMI) 24.6 Intake and Output for Last 24 Hours 06/28/18 06/29/18 06/30/18 23:59 23:59 23:59 Intake Total 3102 / 3102 2012.5 / 2013.5 Output Total 1450 / 1450 2650 / 2650 Balance 1652 / 1652 -636.5 / -636.5 Laboratory Tests Past 24 Hrs 06/30/18 05:05 WBC 14.8 H RBC 2.69 L Hgb 8.4 L Hct 26.0 L MCV 96.7 MCH 31.2 MCHC 32.3 RDW 12.7 RDW Differential 42.9 Plt Count 307 MPV 8.8 Medical Necessity - Tobacco Use Smoking Status: Former smoker Assessment/Plan All Active Problems (Last Updated 06/26/18 @ 21:27 by Daisy Love MD) 41 weeks gestation of (Acute) POD#2 Primary C/S 1. Maternal fever in labor and T max after delivery of 104.5 during recovery. Remains AFEB since CBC this am with normalizing WBCs after Gentatmicin added, daily dosing. Placenta sent for path at [facility] and cord blood for culture-- pending Blood cultures x two also ordered -- Pending Gent and Clindamycin will continue Repeat CBC on POD#3 planned. 2. Postoperative , acute blood loss anemia. Iron supplement started. Slow downward drift. repeat CBC POD#3 RhoGAM given Continue care
[2018-06-30] MEDS: Ferrous Sulfate 325 MG Tablet PO ×2 (12:35→16:32)
[2018-06-30] MEDS: Prenatal Vits Tablet 1 TABLET PO (12:35)
[2018-06-30 13:28] VITALS: BP 99/59; PULSE 92; RESP 16; TEMP 37.1
[2018-06-30 13:29] VITALS: BP 108/61
[2018-06-30 19:58] VITALS: BP 101/56; PULSE 96; RESP 14; TEMP 37.2; O2SAT 100
[2018-07-01] MEDS: Naproxen 250 MG Tablet PO ×2 (01:42→09:45)
[2018-07-01] MEDS: oxyCODONE 5 MG Tablet PO ×2 (01:43→09:28)
[2018-07-01 04:00] VITALS: BP 113/59; PULSE 73; RESP 16; TEMP 36.6
[2018-07-01] MEDS: 0.9% Saline Lock 10 ML Syringe IV (04:06)
--- NOTE | 2018-07-01 04:55 | PCM.DC.SUM ---
Discharge Date and Diagnosis - Problem List Patient Problems: Active and Suspected Problems (Last Updated 06/26/18 @ 21:27 by Daisy Love MD) 41 weeks gestation of (Acute) Date of Admission: 06/26/18 - 41 3/7 wk induction Date of Discharge: 06/30/18 - primary C/s for CPD - Primary Discharge Diagnosis Active and Suspected Problems (Last Updated 06/26/18 @ 21:27 by Daisy Love MD) 41 weeks gestation of (Acute) Hospital Course and Treatment Operations: - - cytotec, AROM, pitocin induction. Primary C/S for CPD. Summary of Care Provided: The patient is a 32 year old female presents for scheduled induction of labor at 41 3/7 wk wiht unfavorable cervix. Admitted for cytotec. AROM and pitocin. Progressed to approx 9 cm over very prolonged course. Maternal fever in labor. No further descent noted. Taken to OR for C/S for CPD. Delivered a us viable female, unengaged in maternal pelvis and persistent OP. Baby's Apgars 6/8/9, Baby weight: 9# 2 oz Normal pelvic anatomy. Placenta sent for path at [facility]. Postoperative fever to 104.5 degrees. Blood cultures x two ordered (later returned as negative). Patient on Ancef and Gentamicin. preop. Ancef continued for 24 hr postop. Due to fevers and persistently elevated, increasing WBCs Clindamycin and Gentamicin continued for endomyometritis. With the resumption of Gentamicin postoperative day #1, her leukocytosis began to resolve. Acute blood loss anemia --.Hgb 11.1 g/dl on admission, dropped to 9 g/dl immediately postop to 8.4 g/dl by POD#2. Started on iron bid Postoperative course otherwise uneventful and patient discharged home on POD#3 RTO in 2 wk for postop appointment Patient Problems: Active and Suspected Problems (Last Updated 06/26/18 @ 21:27 by Daisy Love MD) 41 weeks gestation of (Acute) - Physical Exam Vital Signs Temp Pulse Resp BP Pulse Ox 97.9 F 73 16 113/59 L 100 07/01/18 04:00 07/01/18 04:00 07/01/18 04:00 07/01/18 04:00 06/30/18 19:58 Oxygen Delivery Method Room Air Weight: 75.75 kg Body Mass Index (BMI) 24.6 Intake and Output for Last 24 Hours 06/29/18 06/30/18 07/01/18 23:59 23:59 23:59 Intake Total 2012.5 / Output Total 2650 / 2650 Balance -636.5 / -636.5 Microbiology Past 72 Hours 06/28/18 04:10 Blood Culture - Preliminary Blood Culture (Wb) - No Site/Description Given No growth in 48 hours. 06/28/18 03:55 Blood Culture - Preliminary Blood Culture (Wb) - Anticubital Left No growth in 48 hours. Laboratory Tests Past 24 Hrs 06/30/18 05:05 WBC 14.8 H RBC 2.69 L Hgb 8.4 L Hct 26.0 L MCV 96.7 MCH 31.2 MCHC 32.3 RDW 12.7 RDW Differential 42.9 Plt Count 307 MPV 8.8 Discharge Diet: No Restrictions May resume sexual activity in: 4-6 weeks Additional Activity Instructions:: Nothing in the vagina for 4-6 weeks. You may return to work/school in 6 weeks. Change Dressing in (Days):: 7 Remove Dressing in (days):: 7 Cleanse incision/area with: Soap & Water, Keep Dressing Clean & Dry Home Medications: Medications to take at Discharge Pnv,Calcium 72/Iron/Folic Acid [ Plus Tablet] 1 each PO 06/26/18 Acetaminophen [Tylenol Tablet] 325 - 650 mg PO Q4H PRN PRN tablet 06/28/18 Docusate Sodium [Colace] 100 mg PO BID #30 capsule 06/28/18 Naproxen [Naprosyn] 250 - 500 mg PO TID PRN PRN #30 tablet 06/28/18 Oxycodone [Oxyir] 5 - 10 mg PO Q6H PRN PRN 7 Days #20 tablet 06/28/18 Polyethylene Glycol 3350 [Miralax] 17 gm PO DAILY PRN #14 packet 06/28/18 Following Prescrptions Were Given to Patient: Oxycodone [Oxyir] 5 - 10 mg PO Q6H PRN PRN 7 Days #20 tablet PRN Reason: Mod-Severe Pain (-01/26) Naproxen [Naprosyn] 250 - 500 mg PO TID PRN PRN #30 tablet PRN Reason: Mild-Mod Pain (-08/26) Polyethylene Glycol 3350 [Miralax] 17 gm PO DAILY PRN #14 packet PRN Reason: Constipation Docusate Sodium [Colace] 100 mg PO BID #30 capsule Please Follow Up With: Nery Bacon MD - [phone] When: Call to make an appointment for an incision check in 2 weeks. Medical Necessity - Tobacco Use Smoking Status: Former smoker Meaningful Use Info Meaningful Use Diagnoses (Choose all that apply): None applicable
--- NOTE | 2018-07-01 07:27 | PN.OBGYN_ITS ---
Patient Problems: Active and Suspected Problems (Last Updated 06/26/18 @ 21:27 by Daisy Thomas MD) 41 weeks gestation of (Acute) Subjective: POD#3 Primary C/S BPD. Endomyometritis. Doing OK. More painful after incident with tummy band yesterday. Trying to rest, coordinate sleeping when baby is sleeping. Likely will still want to go home later today. Breast feeding Objective: Lying , resting on L side. - Physical Exam General: Alert, Oriented x3, Cooperative, No apparent distress HEENT: Atraumatic Neck: Supple Abdomen: Soft - Fundus firm and less tender, inferior to umbilicus Skin: Incision - Mepilex dressing intact, dry. Psych/Mental Status: Normal Affect Vital Signs Temp Pulse Resp BP Pulse Ox 97.9 F 73 16 113/59 L 100 07/01/18 04:00 07/01/18 04:00 07/01/18 04:00 07/01/18 04:00 06/30/18 19:58 Oxygen Delivery Method Room Air Weight: 75.75 kg Body Mass Index (BMI) 24.6 Intake and Output for Last 24 Hours 06/29/18/07/01/18 23:59 23:59 23:59 Intake Total 2013.5 / 2013.5 Output Total 2650 / 2650 Balance -636.5 / -636.5 Microbiology Past 72 Hours 06/28/18 04:10 Blood Culture - Preliminary Blood Culture (Wb) - No Site/Description Given No growth in 48 hours. 06/28/18 03:55 Blood Culture - Preliminary Blood Culture (Wb) - Anticubital Left No growth in 48 hours. Medical Necessity - Tobacco Use Smoking Status: Former smoker Assessment/Plan All Active Problems (Last Updated 06/26/18 @ 21:27 by Daisy Love MD) 41 weeks gestation of (Acute) POD#3 Primary C/S 1. Maternal fever in labor and T max after delivery of 104.5 during recovery. Remains AFEB since CBC this am with normalizing WBCs after Gentatmicin added, daily dosing. Placenta sent for path at [facility] -- Blood cultures x two -- no growth Gent and Clindamycin will continue until dischg, likely today Repeat CBC planned and pending 2. Postoperative , acute blood loss anemia. Iron supplement started. Slow downward drift. repeat CBC today RhoGAM given Continue care Likely dischg home today RTO in 2 wk for postop check up
[2018-07-01 07:43] LABS: Pathology Specimen OB SEE PATHOLOGY REPORT
[2018-07-01] MEDS: Prenatal Vits Tablet 1 TABLET PO (09:30)
[2018-07-01 09:45] VITALS: BP 111/64; PULSE 72; RESP 18; TEMP 36.7; O2SAT 96
[2018-07-01 10:07] LABS: Hematocrit 27.3 % (37-47); Mean Corpuscular Hgb 30.9 pg (27.0-32.0); Mean Corpuscular Volume 93.8 fL (81-99); Mean Platelet Vol. 8.4 fl (6.2-12.0); Platelet Count 309 K/mm3 (150-450); RBC Distribution Width CV 12.9 % (11.6-14.6); RBC Distribution Width SD 43.9 fl (35.1-43.9); Red Blood Count 2.91 M/mm3 (4.2-5.4)
[2018-07-01 10:08] LABS: Scan Indicated on CBC? Y/N NO
[2018-07-01] MEDS: Ferrous Sulfate 325 MG Tablet PO (12:59)
[2018-07-01 13:00] VITALS: BP 105/66; PULSE 90; RESP 18; TEMP 37.1; O2SAT 96
== END 2018-07-01 14:45 | disposition home or self-care (01) | DRG 787 ==
PROVIDERS: Obstetrics & Gynecology; Admitting Provider Obstetrics & Gynecology; Referring Provider Obstetrics & Gynecology; Visit Provider Obstetrics & Gynecology
DX: O65.4 Obstructed labor due to fetopelvic disproportion, unspecified (principal); O75.2 Pyrexia during labor, not elsewhere classified; O63.9 Long labor, unspecified; D62 Acute posthemorrhagic anemia; O64.0XX0 Obstructed labor due to incomplete rotation of fetal head, not applicable or unspecified; Z3A.41 41 weeks gestation of pregnancy; Z37.0 Single live birth; Z87.891 Personal history of nicotine dependence; O77.0 Labor and delivery complicated by meconium in amniotic fluid; O76 Abnormality in fetal heart rate and rhythm complicating labor and delivery; R00.0 Tachycardia, unspecified
CPT/HCPCS: 36415; 59025; 59050; 85025; 85027; 85461; 86850; 86900; 87040; 88307; 90384; 99218; J7120; A4216; G0378; J2405; J2790

== ENCOUNTER → 2019-03-31 14:31 | Outpatient (CLI) | payer BC, SELFPAY ==
[2019-03-31 18:31] LABS: Chlamydia Trachomatis by PCR Negative (Negative); Neisserai gonorrhoeae by PCR Negative (Negative); Probe Check PASS; Sample Adequacy Control PASS; Specimen Processing Control PASS
== END ==
PROVIDERS: Visit Provider Obstetrics & Gynecology
DX: Z11.3 Encounter for screening for infections with a predominantly sexual mode of transmission (principal)
CPT/HCPCS: 87491; 87591

== ENCOUNTER → 2019-04-27 15:00 | Outpatient (CLI) | payer BC, SELFPAY ==
[2019-04-27 16:58] LABS: Absolute Lymphocyte Count 1.52 X10^3/uL (0.83-4.51); Basophil# 0.03 X10^3/uL; Basophil% 0.4 % (0-1); Eosinophil# 0.03 X10^3/uL; Eosinophils% 0.4 % (0-5); Hematocrit 37.7 % (37-47); Hemoglobin 12.7 g/dL (12.0-15.0); Lymphocyte # 1.52 X10^3/ul (4.0); Lymphocyte % 19.1 % (19-41); Mean Corp Hgb Conc 33.7 g/dL (32-36); Mean Corpuscular Volume 89.1 fL (81-99); Mean Platelet Vol. 10.2 fl (6.2-12.0); Monocyte# 0.32 X10^3/uL; NRBC Flagged by Analyzer 0 % (0-5); Neutrophil % 75.6 % (47-70); Platelet Count 304 K/mm3 (150-450); RBC Distribution Width CV 12.4 % (11.6-14.6); RBC Distribution Width SD 40.2 fl (35.1-43.9); Red Blood Count 4.23 M/mm3 (4.2-5.4); White Blood Count 7.9 K/mm3 (4.4-11.0)
[2019-04-27 17:06] LABS: Color, Urine Yellow (Yellow); Glucose, Dipstick Normal (Normal); Ketone-Dipstick 5 mg/dl (Negative); Leukocyte Esterase-Dipstick 500 /ul (Negative); Nitrite-Dipstick Negative (Negative); Occult Blood-Urine 10 /ul (Negative); Protein-Dipstick 15 mg/dl (Negative); Urine Bilirubin Dipstick Negative (Negative); Urine Clarity Sl. Cloudy (Clear); Urine Urobilinogen 1 mg/dl (Normal)
[2019-04-27 17:22] LABS: Thyroid Stim Hormone (TSH) < 0.01 uIU/mL (0.358-3.74)
[2019-04-27 17:31] LABS: Amphetamine Urine VISTA NEGATIVE (<1000 ng/mL); Barbiturate Urine VISTA NEGATIVE (< 200 ng/mL); Benzodiazepine Urine VISTA NEGATIVE (< 200 ng/mL); Cocaine Urine VISTA NEGATIVE (< 300 ng/mL); Ecstacy Urine VISTA NEGATIVE (< 500 ng/mL); Methadone Urine VISTA NEGATIVE (< 300 ng/mL); PCP Urine VISTA NEGATIVE (< 25 ng/mL); THC Urine VISTA NEGATIVE (< 50 ng/mL); Vista UDS pH Range 6
[2019-04-28 10:33] LABS: HIV - WCH Non-Reactive (Nonreactive); Hepatitis B Surface Antigen Non-Reactive (Nonreactive); Hepatitis C Antibody Non-Reactive (Nonreactive); Rubella IgG 141.6 IU/mL
[2019-04-28 19:30] LABS: T4 Free Direct 1.31 ng/dL (0.76-1.46)
[2019-05-04 02:55] LABS: Prenatal RPR NONREACTIVE (NONREACTIVE)
== END ==
PROVIDERS: Visit Provider Obstetrics & Gynecology
DX: Z34.81 Encounter for supervision of other normal pregnancy, first trimester (principal)
CPT/HCPCS: 36415; 80307; 81002; 84439; 84443; 84481; 85025; 86703; 86762; 86803; 87340

== ENCOUNTER → 2019-10-17 | Outpatient (CLI) | payer BC, SELFPAY | END | disposition home or self-care (01) | LOC: LABSPEC 10-18 08:41 | PROVIDERS: Visit Provider Obstetrics & Gynecology | DX: Z36.85 Encounter for antenatal screening for Streptococcus B (principal) | CPT/HCPCS: 87081 ==

== ENCOUNTER → 2019-10-26 17:43 | Outpatient (CLI) | payer BC, SELFPAY | PROVIDERS: PCP Family Medicine; Visit Provider Obstetrics & Gynecology | DX: Z11.59 Encounter for screening for other viral diseases (principal) | CPT/HCPCS: 87635; G2023; U0003 ==

== ENCOUNTER 2019-11-02 05:05 | Inpatient (IN) | payer BC, SELFPAY ==
[2019-11-02] VITALS (16 sets, daily range): BP systolic 93–113; BP diastolic 47–67; PULSE 73–95; RESP 15–18; TEMP 36.2–37.2; O2SAT 96–99; BMI 24.3
[2019-11-02] MEDS: Lactated Ringers 1,000 ML 999 ML IV (05:37)
[2019-11-02 06:00] LABS: Absolute Lymphocyte Count 1.81 X10^3/uL (0.83-4.51); Absolute Neutrophil Count 7.9 X10^3/uL (2.0-7.7); Basophil# 0.03 X10^3/uL; Basophil% 0.3 % (0-1); Eosinophil# 0.16 X10^3/uL; Eosinophils% 1.5 % (0-5); Hematocrit 26.2 % (37-47); Hemoglobin 8.1 g/dL (12.0-15.0); Lymphocyte # 1.81 X10^3/ul (4.0); Lymphocyte % 16.8 % (19-41); Mean Corp Hgb Conc 30.9 g/dL (32-36); Mean Corpuscular Hgb 26.2 pg (27.0-32.0); Mean Corpuscular Volume 84.8 fL (81-99); Mean Platelet Vol. 9.3 fl (6.2-12.0); Monocyte# 0.82 X10^3/uL; Monocyte% 7.6 % (0-10); NRBC Flagged by Analyzer 0 % (0-5); Neutrophil # 7.85 X10^3/uL (2.7-7.7); Neutrophil % 72.8 % (47-70); Platelet Count 329 K/mm3 (150-450); RBC Distribution Width CV 14.4 % (11.6-14.6); RBC Distribution Width SD 44.3 fl (35.1-43.9); Red Blood Count 3.09 M/mm3 (4.2-5.4); White Blood Count 10.8 K/mm3 (4.4-11.0)
--- NOTE | 2019-11-02 06:10 | NURSING ---
called Dr. Alcaraz and notified him pt is supposed to get 1000mg of tylenol this morning pre-Op but pt took 500mg at 0200 this morning for a CHAPPELL. order received to only give 500mg this morning Pre-op.
[2019-11-02] MEDS: Acetaminophen 500 MG Tablet 1000 MG PO ×3 (06:16→18:43)
--- NOTE | 2019-11-02 06:32 | HP.PCM_ITS ---
History and Physical Date of Admission: 11/02/19 [facility] [place] ANTEPARTUM RECORD - HISTORY AND PHYSICAL (11/02/2019) Name: ALEKS MCKEON History of This : This is a 34-year-old who presents for repeat section. care has been otherwise uneventful. OB Physician: FRIDA 's Physician: Wilfrid ...................................................................... : 1985 Age: 34 Address: [address] [place] [address] Phone: H) [phone] (O [phone] Insurance Carrier: [employer] [facility] [id number] Emergency Contact: NANCY DE SOUZA/MOTHER [phone] ...................................................................... Final CHOLO: 11/09/19 By Ultrasound: 12 weeks 0 days PARITY: (G-Total Pregnancies P-Fullterm,Premature,Induced AB,Spont AB, Ectopics, Multiple,Living) CHOLO CONFIRMATION: By LMP: 02/07/19 Initial Exam: 11/14/19 By First Ultrasound Exam: 11/14/19 Final CHOLO: 11/09/19 OB PROBLEM LIST: Possible latex allergy. ADHD Anemic (Hgb 9.1). Start FeSO4 325 mg BID to TID. Cats Advised re cat litter and potential toxoplasmosis exposure through skin. GLOVES recommended or someone else to change litter Considering pp tubal Has rash during that resolves post . history of Headaches. used Fioricet prior Mildly hyperthyroid at 12 weeks gestation--repeat TSH with 28 week labs MSAFP and CF Testing declined. MaterniT drawn with labs today. O NEGATIVE RhoGAM at 28-29 wks EGA Prior C/S for CPD 9# 2 oz female. calculator 62% success predicted. Counselled re -APRIL or have repeat C/S at 39 wks EGA--plan R-LTCCS Quit smoking upon discovery Short interval between pregnancies. Prior delivery 06/28/18 Baby 9 mo at her NOB appt.for second ALLERGIES: Amoxicillen Unknown black grapes Hives Latex Purpuric rash No Known Drug Allergies vicodin Nervous system rxn MEDICATIONS: ferrous sulfate 325 mg (65 mg iron) tablet One pill by mouth twice to three times a day Plus 29 mg iron-1 mg tablet 1 daily SOCIAL HISTORY: Smoking - used to smoke but quit Alcohol Use - denies drinking Diet - balanced Diet, caffeine < 2 drinks per day and one bottle of Mt Dew daily. Water intake tries for 4-5 bottles daily or more. Lifestyle - 11/09/15 Exercise - minimal Employer - unemployed Job Description - Illicit Drug Use - denies use of street drugs Sexual Activity - and 3 sexual partners in the past. Residence - lives with Place of - [place], [place] Spouse-Sig Other Name - Genaro Mckeon Spouse-Sig Other Occupation - [employer] Spouse-Sig Other Phone No - [phone] Children Name(s) - Kika PRIOR DELIVERY HISTORY DEL DATE GEST LAB WT LB WT OZ TYPE ANES LABOR TX 12 Jul 05 41 13 9 2 C-Sec Epidural No ANTEPARTUM FLOW CHART VISIT GE RTC FU F F CT U U DATE WK MD WKS HT PN HR M SS BP ED WT CT GL D EF ST __ ____ ___ __ __ ___ __ __ __ ___ __ __ __ ___ __ 09 Oct JMW 3 38 + + 110/58 0 163 tr ne Sep 36 JMW 1 36 V + + 102/58 0 162 tr - ft 50 -2 Sep JMW 1 35 + + 111/64 sl 161 - - Sep JMW 2 34 + + 108/64 0 161 tr - September 16 JMW 2 31 + + 104/54 tr 156 tr - September 13 JMW 3 28 + + 114/66 0 158 - - Aug 10 JMW 4 + O / 0 04 Jul 05 JMW 4 20 + + 102/60 0 144 1+ - Jun 05 JMW 4 17 + 120/68 0 138 ne ne Apr 30 JMW 4 U+ US 106/64 0 130 - - ANTEPARTUM NOTE(S): Oct 26 2019: Good FM Oct 17 2019: GBS today,LARC declined,Doing well Oct 10 2019: Nausea This am,Feeling better this pm Sep 26 2019: Doing Well, Good FM Sep 12 2019: Feeling Well, Good FM Aug 22 2019: see progress note, One Hr PG today, TSH Jul 20 2019: Doing well. No bleeding or ctxs. Will worm picker glucola. Jun 21 2019: Doing Well, US OK Jun 07 2019: doing well, Declines AFP Apr 27 2019: Sono, NOB and PNV Today COMPREHENSIVE ANTEPARTUM NOTE(S): Oct 26 2019: Aleks presents for her PNV. She has good FM. She denies any swelling. Medications and allergies reviewed. Post Op concent reviewed and signed. Ensure drink and body wash given to PT. No complaints or concerns expressed. LJW Oct 25 2019: H taken to OB. tkg Aug 22 2019: Aleks presents for her PNV. She is reporting good FM. She denies any swelling in her extremities. Pt relates she has had 3 episodes of lightheadedness. She drank glucola today and will draw 1hrGTT,CBC,Antibody screen. and Rhogam given. JT Jun 21 2019: Pt presents for her PNV. She is reporting +FM, and denies any edema in her extremities. Urine long dip shows 2+Leuks, Nit Neg, Uro Neg, Pro 1+, pH 6.0, Blood Neg, 1.025, Ket 1+, Bili Neg, Glu Neg. Pt has no sx of UTI. JT Apr 27 2019: Aleks is here for her NOB visit at 12 w 0 d, she is a with an CHOLO Of 11/09/2019. She and her , Genaro, have a 9 month old daughter at home who was delivered by C/S for CPD; Aleks states that she herself had a prolonged post- stay as she spiked a high fever. Past updated. Aleks states that she is likely plans a R C/S at [facility] and that she will breastfeed. She is also considering a pp tubal, but wants to discuss all of her control options with Dr. Lovett, she states that they aren't interested in having more than two children, especially considering her hx of infertility prior to conceiving her daughter. Both of her pregnancies were conceived naturally. Aleks is an established patient with this practice, and is familiar with office practice patterns, labs being collected today. Emergencies/danger signs to report, contacting the office after hours, round ligament pain, and common OTC medications approved/not approved for use during reviewed. She reports daily N/V, at this time she declines medication for same. Reviewed measures that may help minimize nausea, including small frequent meals with protein included throughout the day, adequate water hydration of at least one gallon per 24 hours, Vitamin B6 50 mg twice a day, Unisom at bedtime, and carb rich foods when nauseated. She states that she has tried motion sickness bracelets and did not note any change in N/V. Aleks had been taking OTC gummy vitamin, discussed either trying 2 children's [place]'s Chewable multivitamins a day or if if she tries an non-chewable vitamin, she can try taking it just before going to be, and to take it with a full glass of water. Aleks states that she quit smoking when she found out about . She denies use of drugs or ETOH. Genetic Screening form completed. Aleks declines MSAFP and CF tesitng, consent signed as such. She plans to have cfDNA (MaterniT) drawn today with her labs, and is aware of OOP expenses. Hx of ADHD, and anxiety; states that she is doing okay with anxiety at this time; advised to call if she feels she needs smething for anxiety. Water and dietary needs for reinforced, including caloric needs, recommended weight gain, limiting empty calories, and limiting caffeine to one cup a day. Printed guide for food safety during provided with review. Encouarged regular physical activity, such as walking, for 30 minutes 5 x/week. lifting restrictions reviewed. Aleks states that she has no questions following NOB visit, and states that she understands all information provided during same. To [facility] draw station for labs. AW New Apr 01 2019: GC and chlamydia cultures NEG. EB Mar 31 2019: Here for confirmation of pregancy appt. test postiive. Second . hx of prior C/S delivery for CPD and score predicts 62% likely successful vaginal delivery if attempt . Mar 31 2019: Aleks is being seen for missed menses. is with pt for visit today. LMP 10-22-19. Pt is about 7 weeks and 2 days. CHOLO 11-14-19. Pt is having morning sickness. She did stop about 2 months ago. Last pap 2018 WNL, pap due 2020. Cultures due today. Pt requesting US today. Medications and allergies are up to date. information reviewed and given to pt. AM REVIEW OF SYSTEMS: GENERAL - Denies fever, or chills SKIN - Denies rash, new skin lesions, or change in moles EYES - Denies blurred vision, or change in visual acuity EARS - Denies ear pain, or difficulty hearing NOSE - Denies nasal congestion, discharge, or bleeding MOUTH - Denies sore throat, or difficulty swallowing NECK - Denies pain or swelling RESPIRATORY - Denies shortness of breath, cough, wheezing CARDIOVASCULAR - Denies palpitations, chest pain, orthopnea, PND, peripheral edema, syncope or claudication GASTROINTESTINAL - Denies nausea, vomiting, diarrhea, constipation, Denies abdominal pain, melena and or bright red blood GENITOURINARY - Denies dysuria, frequency of urination, urgency, or hesitancy MUSCULOSKELETAL - Denies joint or muscle pain, or back pain NEUROLOGICAL - Denies localized numbness, weakness, or tingling PSYCHIATRIC - Denies depression, anxiety, substance abuse or suicide attempts ENDOCRINE - Denies heat or cold intolerance, weight loss or gain, increasing thirst HEMATO-IMMUNOLOGIC - Denies easy bruising, bleeding, oral ulcerations or recurrent infections GENETICS SCREENING: Age 35+ years: No Thalassemia: No Neural Tube Defect: No Down Syndrome: Yes, cousin's twin baby. SANKET-SACHS: No Sickle Cell Disease: No Hemophilia: No Musc. Dystrophy: No Cystic Fibrosis: No-declines screening [place] Chorea: No Mental Retardation: No Fragile X: No Other genetic: No Other defects: No SABs/still births: No Drugs since LMP: No INFECTION HISTORY: High risk AIDS: No High risk Hepatitis: No Exposed to TB: No Exposed to Herpes: No Rash/viral illness since LMP: No History of STD: No MENSTRUAL HISTORY: *Menses Amount/Duration: 7-10 daysMenses Regularity: RegularFrequency: monthlyMenarche (Age Onset): 13* PAST SUMMARY: PARITY: 1. Total Pregnancies............ 2 2. Full Term Pregnancies........ 1 3. Premature.................... 0 4. Abortions - Induced.......... 0 5. Abortions - Spontaneous...... 0 6. Ectopics..................... 0 7. Multiple Births.............. 0 8. Living Children.............. 1 PAST #1: Date of :.................. 06/28/18 Gestation Weeks:................ 41 Length of labor(hours):......... 13 Sex:............................ F Weight-lbs:............... 9 Weight-oz:................ 2 Type of Delivery:............... C-Sect Type of Anesthesia:............. Epidural Place of Delivery:.............. [place] Treatment of Labor?:.... No Comment: IOL, MAT. TEMP, MSF, CPD PHYSICAL EXAMINATION General Appearence: 34 yo female in no acute distress Vital Signs: AF, VSS Heart: RRR without rubs or gallops Lungs: CTA x 2 Breasts: deferred Abdomen: gravid Pelvis: Cervix: Presentation: cephalic Station: Fetus: Size: AGA Movement: present Heart: present Labs for : ALEKS MCKEON since 02/12/2019 ORDER DATEIN DESCRIPTION VALUE UNITS RANGE A+ COMMENT CBC W/DIFF, AUTOMATED 11/02/19 NOTE Original Ordering Provider: Jaquan Lovett WBC 10.8 K/mm3 4.4-11.0 RBC 3.09 M/mm3 4.2-5.4 L HGB 8.1 g/dL 12.0-15.0 L HCT 26.2 % 37-47 L MCV 84.8 fL 81-99 MCH 26.2 pg 27.0-32.0 L MCHC 30.9 g/dL 32-36 L RDW CV 14.4 % 11.6-14.6 RDW SD 44.3 fl 35.1-43.9 H PLT 329 K/mm3 150-450 MPV 9.3 fl 6.2-12.0 NEUT% 72.8 % 47-70 H LY% 16.8 % 19-41 L MONO%w 7.6 % 0-10 EO% 1.5 % 0-5 BASO% 0.3 % 0-1 IM GRAN % 1.000 % 0.0-0.9 H IG% - Immature Granulocytes (promyelocytes, myelocytes and metamyelocytes) > 1% indicates that a LEFT SHIFT is Present. ABSOLUTE NEUT 7.9 X10 3/uL 2.0-7.7 H ABSOLUTE LYMPH 1.81 X10 3/uL 0.83-4.51 NRBC, FLAGGED 0 % 0-5 CORONAVIRUS 19, PEPE SCREEN 10/26/19 NOTE w Original Ordering Provider: Jaquan Lovett COVID-19,PEPE Not Detected Not Detect This test was developed and its performance characteristics determined by [employer] This test has not been FDA cleared or approved. This test has been authorized by FDA under an Emergency Use Authorization (EUA). This test is only authorized for the duration of time the declaration that circumstances exist justifying the authorization of the emergency use of in vitro diagnostic tests for detection of SARS-CoV-2 virus and/or diagnosis of COVID-19 infection under section 564(b)(1) of the Act, 21 U.S.C. 360bbb-3(b)(1), unless the authorization is terminated or revoked sooner. When diagnostic testing is negative, the possibility of a false negative result should be considered in the context of a patient's recent exposures and the presence of clinical signs and symptoms consistent with COVID-19. An individual without symptoms of COVID-19 and who is not shedding SARS-CoV-2 virus would expect to have a negative (not detected) result in this assay. TESTING PERFORMED AT [facility]. ORIGINAL REPORT ON FILE IN LAB CONTAINS ADDITIONAL TEST SITE INFORMATION. Reviewed by JAQUAN WEBBER, GROUP B STREPTOCOCCUS 10/17/19 NOTE Original Ordering Provider: Jaquan Lovett Comments: VAGINAL/RECTAL SANCHEZ Culture Group B Beta Streptococcus is not isolated. Reviewed by JAQUAN T3, LILLIANA [CCL] 08/22/19 NOTE Original Ordering Provider: JAQUAN LOVETT FREE T3 2.4 pg/mL 2.3-4.1 [facility] [address] [place] [address] Yves Espinoza III, M.D. [id number] Reviewed by JAQUAN BB ANTIBODY SCREEN 08/22/19 NOTE Original Ordering Provider: JAQUAN LOVETT ANTIBODY SCR negative negative Reviewed by JAQUAN T4-FREE (FREE THYROXINE) 08/22/19 NOTE Original Ordering Provider: JAQUAN LOVETT T4 FREE 0.65 ng/dl 0.61 - 1.12 Potential of falsely elevated results when biotin concentrations are > 10 ng/mL. Reviewed by JAQUAN CBC + DIFF 08/22/19 NOTE Original Ordering Provider: JAQUAN LOVETT CBC + DIFF CBC-COMPLETE BLOOD COUNT WBC 9.8 x 10EE3/UL 4.5 - 10.8 RBC 3.01 x 10EE6/UL 4.10 - 5.30 L HEMOGLOBIN 9.1 g/dl 12.0 - 16.0 L HEMATOCRIT 26.5 % 34.0 - 46.0 L MCV 88 fl 80 - 99 MCH 30 pg 27 - 33 MCHC 34 X10 3 32 - 36 RDW/CV 13.9 % 12.0 - 15.6 PLATELET 379 x10EE3/UL 150 - 450 MPV 8.3 fl 6.6 - 10.5 AUTOMATED DIFFERENTIAL NEUT % 79.9 % 46.0 - 76.0 H LYMPH % 12.6 % 20.0 - 45.0 L MONOS % 5.8 % 0.0 - 10.0 EO % 0.9 % 0.0 - 7.0 BASO % 0.8 % 0.0 - 2.0 LYMPH # 1.20 x10EE3/UL 0.80 - 2.80 NEUT # 7.80 x10EE3/UL 1.50 - 7.10 H MONO # 0.60 x10EE3/UL 0.20 - 1.00 EO # 0.10 x10EE3/UL 0.00 - 0.50 BASO # 0.10 x10EE3/UL 0.00 - 0.10 MANUAL DIFF N/A MORPHOLOGY N/A Reviewed by JAQUAN GLUCOSE CHALLENGE 50GM 1 HOUR 08/22/19 NOTE Original Ordering Provider: JAQUAN LOVETT GLUCOSE CHALLENGE 50GM 1 HOUR GLUCOSE CHALLENGE 50 GMS 1 HOUR GLUCOSE 1HR 97 mg/dl 70 - 140 Reviewed by JAQUAN sanon RPR 04/27/19 NOTE Original Ordering Provider: Jaquan Lovett RPR NONREACTIVE NONREACTIVE Reviewed by JAQUAN T4 FREE DIRECT 04/27/19 NOTE Original Ordering Provider: Jaquan Lovett T4 FREE DIRECT 1.31 ng/dL 0.76-1.46 Reviewed by RAMSEY THYROID STIM HORMONE (TSH) 04/27/19 NOTE Original Ordering Provider: Jaquan Lovett TSH < 0.01 uIU/mL 0.358-3.74 L Reviewed by JAQUAN FREE T3 04/27/19 NOTE Original Ordering Provider: Jaquan Lovett FREE T3 4.0 pg/mL 2.18-3.98 H Reviewed by JAQUAN HEPATITIS C ANTIBODY 04/27/19 NOTE Original Ordering Provider: Jaquan Lovett HEPATITIS C AB Non-Reactive Nonreactive Non Reactive: < 0.8 Equivocal: >/= 0.8 to < 1.0 Reactive: >/= 1.0 The CDC recommends that a reactive/equivocal HCV antibody result be followed up by the HCV Nucleic Acid Amplification test (923229) Reviewed by JAQUAN HEPATITIS B SURFACE ANTIGEN 04/27/19 NOTE Original Ordering Provider: Jaquan Lovett HEPB SURFACE AG Non-Reactive Nonreactive Reviewed by JAQUAN HIV - [facility] 04/27/19 NOTE Original Ordering Provider: Jaquan Lovett HIV - [facility] Non-Reactive Nonreactive Reviewed by JAQUAN RUBELLA IGG 04/27/19 NOTE Original Ordering Provider: Jaquan Lovett RUBELLA IGG 141.6 IU/mL Antibody results Interpretation of Immune Status < 5 IU/ml Presumed Non-immune 5 - < 10 IU/ml Equivocal > or = 10 IU/ml Presumed Immune Reviewed by JAQUAN T AND S-NO CHARGE W/PNP 04/27/19 Reason for Type AND Screen/Red Cells: Surgery? N [facility]~[address] [place], [address]~ BLOOD TYPE GEL O NEGATIVE N AB SCREEN GEL NEGATIVE N Reviewed by JAQUAN URINE DRUG SCREEN (VISTA) 04/27/19 NOTE Original Ordering Provider: Jaquan Lovett TO BE CONFIRMED CONFIRMATORY TESTING FOR ALL POSITIVE URINE DRUG SCREEN RESULTS WILL ONLY BE SENT OUT UPON PHYSICIAN ORDER. VISTA Urine Drug Screen methods provide only preliminary analytical test results. A more specific alternate chemical method must be used in order to obtain a confirmed analytical result. Gas chromatography/mass spectrometery (GC/MS) is the preferred confirmatory method. Clinical consideration and professional judgement should be applied to any drug of abuse test result, particularly when preliminary positive results are used. URINE TCA TESTING MUST BE ORDERED SEPARATELY. USE TEST MNEMONIC: [facility] UDS PH 6 AMPHETAMINES NEGATIVE <1000 ng/mL BARBITIURATES NEGATIVE < 200 ng/mL BENZODIAZIPINE NEGATIVE < 200 ng/mL COCAINE NEGATIVE < 300 ng/mL ECSTACY NEGATIVE < 500 ng/mL METHADONE NEGATIVE < 300 ng/mL OPIATES NEGATIVE < 300 ng/mL PCP NEGATIVE < 25 ng/mL THC NEGATIVE < 50 ng/mL Reviewed by JAQUAN Reviewed by JAQUAN URINALYSIS, ROUTINE (DIPSTICK) 04/27/19 NOTE Original Ordering Provider: Jaquan Lovett COLOR Yellow Yellow CLARITY Sl. Cloudy Clear GLUCOSE, UR Normal mg/dl Normal BILIRUBIN URINE Negative mg/dL Negative KETONE UR 5 mg/dl Negative H SP.GR. DIPSTX 1.020 1.002-1.030 PH UR 6.0 5.0 - 8.0 PROT DIPSTX 15 mg/dl Negative H UROBILI 1 mg/dl Normal H NITRITE UR Negative Negative OCCULT BLOOD-UR 10 /ul Negative H LEUK ESTERASE 500 /ul Negative H Reviewed by JAQUAN CBC W/DIFF, AUTOMATED 04/27/19 NOTE w Original Ordering Provider: Jaquan Lovett WBC 7.9 K/mm3 4.4-11.0 RBC 4.23 M/mm3 4.2-5.4 HGB 12.7 g/dL 12.0-15.0 HCT 37.7 % 37-47 MCV 89.1 fL 81-99 MCH 30.0 pg 27.0-32.0 MCHC 33.7 g/dL 32-36 RDW CV 12.4 % 11.6-14.6 RDW SD 40.2 fl 35.1-43.9 PLT 304 K/mm3 150-450 MPV 10.2 fl 6.2-12.0 NEUT% 75.6 % 47-70 H LY% 19.1 % 19-41 MONO% 4.0 % 0-10 EO% 0.4 % 0-5 BASO% 0.4 % 0-1 IM GRAN % 0.500 % 0.0-0.9 IG% - Immature Granulocytes (promyelocytes, myelocytes and metamyelocytes) > 1% indicates that a LEFT SHIFT is Present. ABSOLUTE NEUT 6.0 X10 3/uL 2.0-7.7 ABSOLUTE LYMPH 1.52 X10 3/uL 0.83-4.51 NRBC, FLAGGED 0 % 0-5 Reviewed by JAQUAN [id number] PLUS CORE 04/27/19 GESTATION [place] Gestation FRACTION 10% GESTATIONAL AGE > 9: Yes CHROMOSOME 21 Negative CHROMOSOME 18 Negative CHROMOSOME 13 Negative INTERPRETATION This specimen showed an expected representation of chromosome 21, 18 and 13 material. Clinical correlation is suggested. Y CHROMOSOME Detected Y CHROMOSOME INTERPRETATION Consistent with a male fetus. ADDITIONAL FINDINGS N/A ADD'L FINDINGS INTERPRETATION N/A ADDITIONAL FINDINGS NOTE N/A INSTRUCTOR APPAREL MANUFACTURE COMMENTS Fraction: 10% POSITIVE PREDICTIVE VALUE N/A APPROVED BY Darrel Henderson MD, PhD, Director, [facility] TEST METHOD Circulating cell-free DNA was purified from the plasma component of maternal blood. The extracted DNA was then converted into a genomic DNA library for aneuploidy analysis of chromosomes 21, 18, and 13 via next generation sequencing.[1] Optional findings based on the test order include sex chromosome aneuploidy (SCA), and enhanced sequencing series (ESS), which will only be reported on as an additional finding when an abnormality is detected. SCA testing includes information on X and Y representation, while ESS testing includes deletions in selected regions (22q, 15q, 11q, 8q, 5p, 4p, 1p) and trisomy of chromosomes 16 and 22. ABOUT THE TEST The MaterniT(R) 21 PLUS laboratory-developed test (LDT) analyzes circulating cell-free DNA from a maternal blood sample. The test is indicated for use in women with increased risk for chromosomal aneuploidy. Validation data on twin pregnancies is limited and the ability of this test to detect aneuploidy in a triplet has not yet been validated. PERFORMANCE The performance characteristics of the MaterniT(R) 21 PLUS laboratory-developed test (LDT) have been determined in a clinical validation study with women at increased risk for chromosomal aneuploidy.[1,2] The negative predictive value for trisomy 21, 18 and 13 is greater than 99%. PERFORMANCE DATA Note Trisomy 21 Sensitivity: 99.1%; CI: 96.3-99.8% Trisomy 21 Specificity: 99.9%; CI: 99.6-99.9% Trisomy 18 Sensitivity: >99.9%; CI: 92.4-100.0% Trisomy 18 Specificity: 99.6%; CI: 99.2-99.8% Trisomy 13 Sensitivity: 91.7%; CI: 59.7-99.6% Trisomy 13 Specificity: 99.7%; CI: 99.3-99.9% Y Chromosome Accuracy: 99.4%; CI: 99.0-99.6% LIMITATIONS OF THE TEST While the results of these tests are highly accurate, discordant results, including inaccurate sex prediction, may occur due to placental, maternal, or mosaicism or neoplasm; vanishing twin; prior maternal organ transplant; or other causes. Sex chromosomal aneuploidies are not reportable for known multiple gestations. These tests are screening tests and not diagnostic; they do not replace the accuracy and precision of diagnosis with CVS or amniocentesis. A patient with a positive test result should be referred for genetic counseling and offered invasive diagnosis for confirmation of test results.[3] A negative result does not ensure an unaffected nor does it exclude the possibility of other chromosomal abnormalities or defects which are not a part of these tests. An uninformative result may be reported, the causes of which may include, but are not limited to, insufficient sequencing coverage, noise or artifacts in the region, amplification or sequencing bias, or insufficient fraction. These tests are not intended to identify pregnancies at risk for neural tube defects or ventral wall defects. Testing for whole chromosome abnormalities (including sex chromosomes) and for subchromosomal abnormalities could lead to the potential discovery of both and maternal genomic abnormalities that could have major, minor, or no, clinical significance. Evaluating the significance of a positive or a non-reportable result may involve both invasive testing and additional studies on the mother. Such investigations may lead to a diagnosis of maternal chromosomal or subchromosomal abnormalities, which on occasion may be associated with benign or malignant maternal neoplasms. These tests may not accurately identify triploidy, balanced rearrangements, or the precise location of subchromosomal duplications or deletions; these may be detected by diagnosis with CVS or amniocentesis. The ability to report results may be impacted by maternal BMI, maternal weight, maternal systemic lupus erythematosus (SLE) and/or by certain pharmaceutical agents such as low molecular weight heparin (for example: Lovenox(R), Xaparin(R), Clexane(R) and Fragmin(R)). The results of this testing, including the benefits and limitations, should be discussed with a qualified healthcare provider. management decisions, including termination of the , should not be based on the results of these tests alone. The healthcare provider is responsible for the use of this information in the management of their patient. NOTE This test was developed and its performance characteristics determined by [facility]. It has not been cleared or approved by the Food and Drug Administration. This laboratory is certified under the Clinical Laboratory Improvement Amendments (CLIA) as qualified to perform high complexity clinical laboratory testing and accredited by the [employer] (CAP). If there is future clinical need for adding MaterniT GENOME testing, this specimen will be available until term. [facility] samples will not be retained beyond 60 days. [facility] patients will have to send a new sample for re-sequencing ([facility] Test Code: [id number]). REFERENCES 1. Mauricio ROSSI et al. [employer] Med. 2012;14(3):296-305. 2. Mauricio ROSSI et al. [employer]ette Med. 2011;13(11):913-920. 3. ACOG/SMFM Joint Committee Opinion No. 545, Mar 2012. PDF . Reviewed by JAQUAN MURRAY/CINTIA [facility] BY PCR 03/31/19 NOTE Original Ordering Provider: Nery HARO [facility] PCR Negative Negative NG BY PCR Negative Negative Reviewed by NERY Impression /Plan: 39-week intrauterine for repeat section. Preparations in progress for delivery.
--- NOTE | 2019-11-02 06:45 | NURSING ---
Dr. Alcaraz called and notified there is a labor pt going back for a c/s now so his morning c/s will be delayed.
[2019-11-02] MEDS: Lactated Ringers 1,000 ML 150 ML IV (06:55)
--- NOTE | 2019-11-02 08:47 | PCM.OPRPT ---
Delivery Classification: Scheduled Final CHOLO: 11/09/19 Final CHOLO Source: US <20 weeks Gestational age: 39 Weeks and 0 Days support services specialist: Madelaine Beavers Type of Anesthesia:: Spinal - With Duramorph Implants Used: None Date of Procedure: 11/02/19 Pre-Operative Diagnosis: Prior Section; Desires Permanent Sterilization Post-Operative Diagnosis: Prior Section; Desires Permanent Sterilization Description of Procedure: Surgeon: Tommy Alcaraz MD, FACOG Anesthesia: Farhana Rojas CRNA Procedure: Repeat Low Transverse Cervical Caesarean Section And Bilateral Tubal Occlusion with Filshie Clips Findings: Viable male infant with Apgars of 8/9 in occiput anterior presentation with clear amniotic fluid and normal three-vessel placenta. Indication: This is a 34-year-old who presents for her second at 39 weeks gestation. She also desires permanent sterilization. care has otherwise been uneventful. The patient has been counseled regarding the risk and indications of this procedure including the possibility of bleeding infection and injury to surrounding structures such as bowel bladder. She also understands the permanent nature of a tubal, the failure rate of 1 to 2%, and the availability of other nonpermanent control options. All questions were answered. Procedure: Patient was taken to the operating room where after spinal anesthesia was placed, the patient was prepped and draped in usual sterile fashion and a Dowling catheter was placed. The abdomen was entered through the patient's prior Pfannenstiel incision and peritoneum was entered bluntly. After developing a bladder flap on the lower uterine segment a low transverse incision was made on the uterus and head was easily delivered onto the operative field the nose mouth and oropharynx were bulb suctioned. Subsequently a viable male was born with Apgars of 8/9. The was noted to cry move all extremities vigorously on the operative field. The umbilical cord was doubly clamped and ligated and infant handed to the nursery personnel who were present for the delivery. Placenta was delivered and noted to be 3 vessels and normal. Uterus was exteriorized and remaining placental tissue was removed. The uterus was then closed in 2 layers first with running locked 0 Vicryl suture followed by a second imbricating layer with 0 Vicryl suture. 0 Vicryl suture was then used in a horizontal mattress interrupted fashion to affect final hemostasis of the uterine incision line. Normal fallopian tubes and ovaries were visualized and Filshie clips were placed approximately 2 cm from the uterine fundus on each fallopian tube. The uterus was returned to the pelvis. Hemostasis was noted and rectus abdominis muscles were reapproximated in the midline with interrupted Number 0 Vicryl suture in a horizontal mattress fashion. Fascia was closed with running Number 1 PDS Strata fix suture. Subcutaneous tissue was irrigated with copious amounts of saline solution and then closed with running 3-0 Vicryl suture. Skin was closed with 4-0 monocryl suture in a running subcuticular fashion. Steri strips and a Mepilex dressing were placed across the incision. The patient tolerated the procedure well and was taken to the recovery room in satisfactory condition. Sponge, needle, and instrument counts were all reportedly correct. EBL was 500 cc. Ancef 2 gms IV was given prior to the procedure. Spicemen to Pathology: None Complications: None Amniotic Fluid Description: Clear Placenta Disposition: [facility] Drain: Dowling to straight drain Fluids Replaced: Crystalloid Cord Vessel Description: 3 Vessels Esitmated Blood Loss (ml): 500 cc Gender: Male (1 minute): 8 (5 minute): 9 Antibiotic Given: Ancef 2 grams IV x1 Pt instructed on risks of surgery: Bleeding, Infection, Permanency, Failure Rate of 1 to 2%, Injury to surrounding structure(s) including bowel and bladder, Availability of other non-permanent control options Complications: None - Admit VTE Documentation VTE Present on Admission: Yes VTE Mechan Device Prophylaxis: SCD's
--- NOTE | 2019-11-02 08:49 | DCINST_ITS ---
<Tommy Alcaraz - Last Filed: 11/02/19 08:49> Discharge Diet: No Restrictions Discharge Activity: May not drive while taking narcotic pain medications., May Shower, May Take a Tub Bath May resume sexual activity in: 4-6 weeks Lifting Restrictions: 20 pounds Additional Activity Instructions:: Nothing in the vagina for 4-6 weeks. You may return to work/school in 6 weeks. Call your doctor if your incision/area has: Continuous Slow Oozing, Sudden Increased Bleeding, Increased Pain/ Swelling, Increased Redness, Foul Smelling Discharge Call your doctor if you observe: Fever of 101 or Higher, Inability to urinate, Inability to have a bowel movement, Using more than one pad per hour Additional Instructions: If you experience any of the following, contact your healthcare provider. * Bleeding that soaks a pad every hour for 2 hours * Fever 100.4 or higher * Unrelieved incision or abdominal pain * Swelling, redness, discharge or bleeding from your incision or episiotomy site * Your incision begins to separate * Problems urinating (including inability to urinate or burning while urinating). * Visual changes * Severe headache * Flu-like symptoms * Pain or redness in one of both of your breasts * Pain, warmth, tenderness or swelling in your legs, especially the calf area * Frequent nausea and vomiting * Symptoms of depression or anxiety If you experience any of the following, call 911 or go to the nearest Emergency Room. * Chest pain * Problems breathing * Seizure activity * Partial or complete paralysis of a body part, slurred speech, weakness or drooping of the face, or a sudden inability to walk or hold your balance Allergies/Adverse Reactions: Allergies amoxicillin Allergy (Verified 11/02/19 05:38) Other yeast infection latex Allergy (Verified 11/02/19 05:38) Itching Medications to take at Discharge Acetaminophen [Tylenol Tablet] 325 - 650 mg PO Q4H PRN PRN tablet 06/28/18 Docusate Sodium [Colace] 100 mg PO BID PRN PRN #60 cap 11/02/19 Oxycodone [Oxyir] 5 mg PO Q6H PRN PRN 7 Days #20 tab 11/02/19 The following prescriptions were given: Docusate Sodium [Colace] 100 mg PO BID PRN PRN #60 cap PRN Reason: Constipation Transmission Status: Received by [facility] [id number] Oxycodone [Oxyir] 5 mg PO Q6H PRN PRN 7 Days #20 tab PRN Reason: Pain Score 6-10/10 Transmission Status: Received by [facility] [id number] Follow-Up: Call to make an appointment with your doctor for an incision check in 1-2 weeks. You will also need a 6 week post- follow up appointment. Test results from this visit will be discussed in further detail at your follow- up appointment, if applicable. Please Follow Up With: Tommy Alcaraz MD - [phone] When: Call to make an appointment for an incision check in 2 weeks. Primary Care Physician: Ramila Arambula MD [Primary Care Provider] - <Fara Galicia - Last Filed: 11/04/19 09:05> Additional Instructions: If you experience any of the following, contact your healthcare provider. * Bleeding that soaks a pad every hour for 2 hours * Fever 100.4 or higher * Unrelieved incision or abdominal pain * Swelling, redness, discharge or bleeding from your incision or episiotomy site * Your incision begins to separate * Problems urinating (including inability to urinate or burning while urinating). * Visual changes * Severe headache * Flu-like symptoms * Pain or redness in one of both of your breasts * Pain, warmth, tenderness or swelling in your legs, especially the calf area * Frequent nausea and vomiting * Symptoms of depression or anxiety If you experience any of the following, call 911 or go to the nearest Emergency Room. * Chest pain * Problems breathing * Seizure activity * Partial or complete paralysis of a body part, slurred speech, weakness or drooping of the face, or a sudden inability to walk or hold your balance Follow-Up: Call to make an appointment with your doctor for an incision check in 1-2 weeks. You will also need a 6 week post- follow up appointment. Test results from this visit will be discussed in further detail at your follow- up appointment, if applicable.
[2019-11-02] MEDS: Sodium Citrate/Citric Acid 30 ML UDC PO (08:50)
[2019-11-02] MEDS: Cefazolin 2 GM in 0.9% Normal Saline 100 ML IV (09:16)
[2019-11-02] MEDS: Oxytocin 30 units/NS 500 ml 30 UNITS/500 ML IV.SOLN 167 UNITS IV (10:30)
[2019-11-02] MEDS: Lactated Ringers 1,000 ML 100 ML IV (13:39)
[2019-11-02] MEDS: Ketorolac 30 MG/ML Syringe IV ×2 (16:26→21:57)
[2019-11-02] MEDS: Cefazolin 1 GM/50 ML BAG IV (17:57)
[2019-11-02] MEDS: 0.9% Saline Lock 10 ML Syringe IV (21:57)
[2019-11-03 00:31] VITALS: BP 90/44; PULSE 78; RESP 14; TEMP 36.7
[2019-11-03] MEDS: Acetaminophen 500 MG Tablet 1000 MG PO ×4 (00:34→19:47)
[2019-11-03] MEDS: 0.9% Saline Lock 10 ML Syringe IV ×3 (01:20→10:06)
[2019-11-03] MEDS: Cefazolin 1 GM/50 ML BAG IV (01:20)
[2019-11-03 03:26] VITALS: BP 102/60; PULSE 72; RESP 18; TEMP 36.3
[2019-11-03] MEDS: Ketorolac 30 MG/ML Syringe IV ×2 (03:54→10:05)
--- NOTE | 2019-11-03 08:14 | PCM.PN.OB ---
Subjective: Very tired today and hasn't slept really at all. Pain is okay with IV medication. Denies heavy bleeding. Reports not urinating yet, but passing flatus. son well. Objective: VSS. Pain is a 2/10 after medication. Fundus is firm, midline, u/2. Lochia rubra moderate. - Physical Exam Vitals/I&O's: Vital Signs Temp Pulse Resp BP Pulse Ox 97.3 F L 72 18 102/60 99 11/03/19 03:26 11/03/19 03:26 11/03/19 03:26 11/03/19 03:26 11/02/19 18:30 Oxygen Delivery Method Room Air Weight: 74.8 kg Body Mass Index (BMI) 24.3 Intake and Output for Last 24 Hours 11/01/19 11/02/19 11/03/19 23:59 23:59 23:59 Intake Total 2797.5 / 2797.5 86.67 / 86.67 Output Total 610 / 610 550 / 550 Balance 2187.5 / 2187.5 -463.33 / -463.33 General: Alert, Oriented x3, Cooperative HEENT: Atraumatic, PERRLA, EOMI, Normocephalic Neck: Supple, No JVD, Negative Carotid Bruits Lungs: Clear to auscultation, Normal air movement Cardiovascular: Regular rate, No murmurs Abdomen: Bowel Sounds Present, Soft, Non Tender, - - fundus u/2, surgical dressing small amount of old drainage Extremities: No edema, Capillary Refill Less than 3 Seconds Skin: No rashes, No breakdown, Incision - surgical dressing small amount of old drainage Musculoskeletal: No Tenderness to Palpation of Joints or Extremities Neurological: Cranial nerves II-XII grossly intact Psych/Mental Status: Normal Affect, Appropriate Laboratory Results 11/02/19 11:45: Screen POSITIVE H, Baby's Blood Type O POSITIVE, Baby's ELICIA NEGATIVE 11/02/19 : [facility] Hgb Pending Current Medications Acetaminophen (Tylenol) 1,000 mg PO Q6H [facility] Last Admin: 11/03/19 06:34 Dose: 1,000 mg Documented by: Bisacodyl (Dulcolax) 10 mg RECTAL UD PRN PRN Reason: If no BM Hydrocortisone (Hytone) 1 applic TOPICAL TID PRN PRN; Protocol PRN Reason: Discomfort Lactated Ringer's () 1,000 mls @ 100 mls/hr IV .Q10H [facility] Last Admin: 11/03/19 06:47 Dose: Not Given Documented by: Naloxone HCl 4 mg/ Dextrose 504 mls @ 0 mls/hr IV .Q0M PRN; Protocol PRN Reason: Respiratory depression Ibuprofen (Motrin) 600 mg PO Q6H [facility] Ketorolac Tromethamine (Toradol (Bkc)) 30 mg IV Q6H [facility] Stop: 11/03/19 10:01 Last Admin: 11/03/19 03:54 Dose: 30 mg Documented by: Methylergonovine Maleate (Methergine) 0.2 mg IM X1 PRN PRN Reason: Uterine Atony Naloxone HCl (Narcan) 0.02 mg IV Q1M PRN PRN Reason: RR <10 and pt unresponsive Ondansetron HCl (Zofran) 4 mg IV Q4H PRN PRN PRN Reason: Nausea Oxycodone HCl (Oxyir) 5 - 10 mg PO Q4H PRN PRN PRN Reason: Pain Score 4-10/10 Prochlorperazine Edisylate (Compazine Iv) 10 mg IV Q6H PRN PRN PRN Reason: NAUSEA Senna/Docusate Sodium (Senokot-S, Mare-Colace) 0 tablet PO DAILY [facility] Last Admin: 11/02/19 11:03 Dose: Not Given Documented by: Simethicone (Mylicon) 80 mg PO HS PRN PRN Reason: Indigestion/stomach pain Last Admin: 11/03/19 08:08 Dose: 80 mg Documented by: Sodium Chloride () 5 - 15 ml IV UD PRN PRN Reason: SALINE FLUSH Last Admin: 11/03/19 03:55 Dose: 10 ml Documented by: Medical Necessity - Tobacco Use Smoking Status: Former smoker Assessment/Plan All Active Problems (Last Updated 06/26/18 @ 21:[address] Daisy Thomas MD) 41 weeks gestation of (Acute) A/P: POD #1 from a Repeat Low Transverse Cervical Caesarean Section And Bilateral Tubal Occlusion with Filshie Clips Pain well managed with IV medication Hasn't been able to urinate yet mother To continue surgical orders May want to discharge tomorrow or Wednesday
[2019-11-03 08:17] VITALS: BP 90/56; PULSE 76; RESP 18; TEMP 36.4
[2019-11-03] MEDS: Senna/Docusate Sodium 1 Tablet PO (10:05)
[2019-11-03] MEDS: Ibuprofen 600 MG Tablet PO ×3 (12:22→23:53)
[2019-11-03 14:45] VITALS: BP 89/62; PULSE 91; RESP 18; TEMP 36.6
[2019-11-03 15:30] LABS: Hematocrit 21.6 % (37-47); Hemoglobin 6.7 g/dL (12.0-15.0); Mean Corpuscular Hgb 26.7 pg (27.0-32.0); Mean Corpuscular Volume 86.1 fL (81-99); Mean Platelet Vol. 9.1 fl (6.2-12.0); Platelet Count 292 K/mm3 (150-450); RBC Distribution Width CV 14.8 % (11.6-14.6); RBC Distribution Width SD 45.7 fl (35.1-43.9); Red Blood Count 2.51 M/mm3 (4.2-5.4)
[2019-11-03 16:40] VITALS: BP 101/55; PULSE 92; RESP 18
[2019-11-03] MEDS: oxyCODONE 5 MG Tablet PO ×2 (16:52→22:41)
[2019-11-03 19:40] VITALS: BP 110/63; PULSE 87; RESP 18; TEMP 36.7; O2SAT 97
[2019-11-04] MEDS: Acetaminophen 500 MG Tablet 1000 MG PO ×4 (01:50→21:32)
[2019-11-04 01:53] VITALS: BP 101/59; PULSE 89; RESP 18; TEMP 36.4
[2019-11-04] MEDS: Ibuprofen 600 MG Tablet PO ×3 (05:52→18:44)
--- NOTE | 2019-11-04 09:06 | PCM.PN.OB ---
Subjective: Reports this morning when getting out of bed experience severe pain. Pain is stable right now, but she's concerned about leaving due to the pain. Denies heavy bleeding. Has been up ambulating, tolerating a regular diet well. Objective: VSS. Fundus is firm, midline, u/2. Lochia rubra moderate - Physical Exam Vitals/I&O's: Vital Signs Temp Pulse Resp BP Pulse Ox 97.5 F L 89 18 101/59 L 97 11/04/19 01:53 11/04/19 01:53 11/04/19 01:53 11/04/19 01:53 11/03/19 19:40 Oxygen Delivery Method Room Air Weight: 74.8 kg Body Mass Index (BMI) 24.3 Intake and Output for Last 24 Hours 11/02/19 11/03/19 11/04/19 23:59 23:59 23:59 Intake Total 2797.5 / 2797.5 86.67 / 86.67 Output Total 610 / 610 750 / 750 Balance 2187.5 / 2187.5 -663.33 / -663.33 General: Alert, Oriented x3, Cooperative HEENT: Atraumatic, PERRLA, EOMI, Normocephalic Neck: Supple, No JVD, Negative Carotid Bruits Lungs: Clear to auscultation, Normal air movement Cardiovascular: Regular rate, No murmurs Abdomen: Bowel Sounds Present, Soft, Non Tender Extremities: No edema, Capillary Refill Less than 3 Seconds Skin: No rashes, No breakdown, Incision - Incision small amoutn of old drainage Musculoskeletal: No Tenderness to Palpation of Joints or Extremities Neurological: Cranial nerves II-XII grossly intact Psych/Mental Status: Normal Affect, Appropriate Laboratory Results 11/02/19 : Mila Jiang Hgb POSITIVE H 11/03/19 15:15: WBC 12.0 H, RBC 2.51 L, Hgb 6.7 L, Hct 21.6 L, MCV 86.1, MCH 26.7 L, MCHC 31.0 L, RDW Std Deviation 45.7 H, RDW Coeff of Guille 14.8 H, Plt Count 292, MPV 9.1 Current Medications Acetaminophen (Tylenol) 1,000 mg PO Q6H [facility] Last Admin: 11/04/19 01:50 Dose: 1,000 mg Documented by: Bisacodyl (Dulcolax) 10 mg RECTAL UD PRN PRN Reason: If no BM Hydrocortisone (Hytone) 1 applic TOPICAL TID PRN PRN; Protocol PRN Reason: Discomfort Naloxone HCl 4 mg/ Dextrose 504 mls @ 0 mls/hr IV .Q0M PRN; Protocol PRN Reason: Respiratory depression Ibuprofen (Motrin) 600 mg PO Q6H [facility] Last Admin: 11/04/19 05:52 Dose: 600 mg Documented by: Methylergonovine Maleate (Methergine) 0.2 mg IM X1 PRN PRN Reason: Uterine Atony Naloxone HCl (Narcan) 0.02 mg IV Q1M PRN PRN Reason: RR <10 and pt unresponsive Ondansetron HCl (Zofran) 4 mg IV Q4H PRN PRN PRN Reason: Nausea Oxycodone HCl (Oxyir) 5 - 10 mg PO Q4H PRN PRN PRN Reason: Pain Score 4-10/10 Last Admin: 11/03/19 22:41 Dose: 10 mg Documented by: Prochlorperazine Edisylate (Compazine Iv) 10 mg IV Q6H PRN PRN PRN Reason: NAUSEA Senna/Docusate Sodium (Senokot-S, Mare-Colace) 0 tablet PO DAILY [facility] Last Admin: 11/03/19 10:05 Dose: 2 tablet Documented by: Simethicone (Mylicon) 80 mg PO P[facility]S PRN PRN Reason: Indigestion/stomach pain Last Admin: 11/03/19 22:35 Dose: 80 mg Documented by: Sodium Chloride () 5 - 15 ml IV UD PRN PRN Reason: SALINE FLUSH Last Admin: 11/03/19 10:06 Dose: 10 ml Documented by: Medical Necessity - Tobacco Use Smoking Status: Former smoker Assessment/Plan All Active Problems (Last Updated 06/26/18 @ 21:[address] Daisy Thomas MD) 41 weeks gestation of (Acute) A/P: POD #2 S/P Repeat Csection Pain management not well controlled with oral medication Normal involution and course Will discharge tomorrow
[2019-11-04] MEDS: oxyCODONE 5 MG Tablet PO ×3 (09:57→21:01)
[2019-11-04] MEDS: Senna/Docusate Sodium 1 Tablet PO (09:59)
[2019-11-04 10:00] VITALS: BP 112/56; PULSE 95; RESP 16; TEMP 36.7
[2019-11-04 14:50] VITALS: BP 95/54; PULSE 87; RESP 16; TEMP 36.8
[2019-11-04 20:45] VITALS: BP 100/56; PULSE 88; RESP 18; TEMP 18.4
[2019-11-05] MEDS: Ibuprofen 600 MG Tablet PO ×2 (00:38→05:44)
[2019-11-05 01:00] VITALS: BP 101/51; PULSE 86; RESP 16; TEMP 36.3
[2019-11-05] MEDS: oxyCODONE 5 MG Tablet PO ×2 (02:25→10:34)
[2019-11-05] MEDS: Acetaminophen 500 MG Tablet 1000 MG PO ×2 (04:11→10:33)
[2019-11-05 09:00] VITALS: BP 103/65; PULSE 85; RESP 18; TEMP 36.7
--- NOTE | 2019-11-05 09:56 | PCM.PN.OB ---
Subjective: Feeling much better today and a lot more rested. Still cramping, but taking Motrin and Tylenol. well. Has been ambulating fine, tolerating regular diet, urinating well and passing flatus. Wants to leave surgical dressing on until day #5. Objective: VSS. Fundus is firm, midline, u/2. Lochia rubra moderate. Surgical dressing is CDI - Physical Exam Vitals/I&O's: Vital Signs Temp Pulse Resp BP Pulse Ox 97.4 F L 86 16 101/51 L 97 11/05/19 01:00 11/05/19 01:00 11/05/19 01:00 11/05/19 01:00 11/03/19 19:40 Oxygen Delivery Method Room Air Weight: 74.8 kg Body Mass Index (BMI) 24.3 Intake and Output for Last 24 Hours 11/03/19 11/04/19 11/05/19 23:59 23:59 23:59 Intake Total 86.67 / 86.67 Output Total 750 / 750 Balance -663.33 / -663.33 General: Alert, Oriented x3, Cooperative HEENT: Atraumatic, PERRLA, EOMI, Normocephalic Neck: Supple, No JVD, Negative Carotid Bruits Lungs: Clear to auscultation, Normal air movement Cardiovascular: Regular rate, No murmurs Abdomen: Bowel Sounds Present, Soft, Non Tender Extremities: No edema, Capillary Refill Less than 3 Seconds Skin: No rashes, No breakdown Musculoskeletal: No Tenderness to Palpation of Joints or Extremities Neurological: Cranial nerves II-XII grossly intact Psych/Mental Status: Normal Affect, Appropriate Current Medications Acetaminophen (Tylenol) 1,000 mg PO Q6H [facility] Last Admin: 11/05/19 04:11 Dose: 1,000 mg Documented by: Bisacodyl (Dulcolax) 10 mg RECTAL UD PRN PRN Reason: If no BM Hydrocortisone (Hytone) 1 applic TOPICAL TID PRN PRN; Protocol PRN Reason: Discomfort Naloxone HCl 4 mg/ Dextrose 504 mls @ 0 mls/hr IV .Q0M PRN; Protocol PRN Reason: Respiratory depression Ibuprofen (Motrin) 600 mg PO Q6H [facility] Last Admin: 11/05/19 05:44 Dose: 600 mg Documented by: Methylergonovine Maleate (Methergine) 0.2 mg IM X1 PRN PRN Reason: Uterine Atony Naloxone HCl (Narcan) 0.02 mg IV Q1M PRN PRN Reason: RR <10 and pt unresponsive Ondansetron HCl (Zofran) 4 mg IV Q4H PRN PRN PRN Reason: Nausea Oxycodone HCl (Oxyir) 5 - 10 mg PO Q4H PRN PRN PRN Reason: Pain Score 4-10/10 Last Admin: 11/05/19 02:25 Dose: 10 mg Documented by: Prochlorperazine Edisylate (Compazine Iv) 10 mg IV Q6H PRN PRN PRN Reason: NAUSEA Senna/Docusate Sodium (Senokot-S, Mare-Colace) 0 tablet PO DAILY [facility] Last Admin: 11/04/19 09:59 Dose: 2 tablet Documented by: Simethicone (Mylicon) 80 mg PO [facility] PRN PRN Reason: Indigestion/stomach pain Last Admin: 11/05/19 02:24 Dose: 80 mg Documented by: Sodium Chloride () 5 - 15 ml IV UD PRN PRN Reason: SALINE FLUSH Last Admin: 11/03/19 10:06 Dose: 10 ml Documented by: Medical Necessity - Tobacco Use Smoking Status: Former smoker Assessment/Plan All Active Problems (Last Updated 06/26/18 @ 21:[address] Daisy Thomas MD) 41 weeks gestation of (Acute) A/P: POD #3 from a Repeat Low Transverse Cervical Caesarean Section And Bilateral Tubal Occlusion with Filshie Clips Pain well managed with oral Motrin and Tylenol, educated on heating pad at home for cramping mother Dyad stable To remove surgical dressing on POD #5 per her wishes To discharge home today with a 2 week incision check already scheduled Educated on , normal involution and lochia, surgical dressing care, signs of infection and signs of depression
[2019-11-05] MEDS: Senna/Docusate Sodium 1 Tablet PO (10:33)
[2019-11-06 07:51] LABS: Kleihauer-Betke POSITIVE
== END 2019-11-05 11:40 | disposition home or self-care (01) | DRG 785 ==
PROVIDERS: Admitting Provider Obstetrics & Gynecology; PCP Family Medicine; Referring Provider Obstetrics & Gynecology; Visit Provider Obstetrics & Gynecology
PROC: 10D00Z1 Extraction of Products of Conception, Low, Open Approach (ICD-10-PCS; CPT 59514; principal; 2019-11-02 07:15)
DX: O34.211 Maternal care for low transverse scar from previous cesarean delivery (principal); O99.02 Anemia complicating childbirth; D64.9 Anemia, unspecified; Z3A.39 39 weeks gestation of pregnancy; Z37.0 Single live birth; Z30.2 Encounter for sterilization; Z87.891 Personal history of nicotine dependence
CPT/HCPCS: 85025; 85027; 85460; 85461; 86850; 86900; 86901; 90384; 99218; J7120; A4216; G0378; J2790

== ENCOUNTER → 2021-01-02 10:51 | Outpatient (CLI) | payer BC, SELFPAY ==
--- NOTE | 2021-01-02 10:30 | EMB_PTH ---
PATIENT: ALEKS GREGORIO LOC: [facility] U#:[id number] AGE/SX: 39/F ROOM: RE01/02/[address]: Dr. Tommy Alcaraz MD : 1985 BED: DIS: SPEC #: [id number] RECD: 01/02/21 13:15 STATUS: TIMOTHY AYUSH #: [id number] KARINA: 01/02/21 10:[address]: Tommy Alcaraz DEPT: SURGICAL PATHOLOGY RECD BY: Elicia Warren ENTERED: 01/02/21 13:16 SP TYPE: ENDOM BX/C ALEIDA DR: Dr. Ramila Arambula MD Tissues: Endometrium, NOS Procedures: Surgery Specimen Level IV HEADER OPERATION: Endometrial biopsy PRE-OP DIAGNOSIS: N92.0 TISSUE SUBMITTED: Endometrial biopsy MICROSCOPIC DIAGNOSIS Endometrium, biopsy: Transition endometrium. See comment. AM:juliana 01/03/2021 COMMENT There is no evidence of hyperplasia. Clinical correlation is suggested. MICROSCOPIC DESCRIPTION Slides are reviewed. GROSS DESCRIPTION Received in fixative is one container labeled with the patient's name and designated endometrial biopsy. The specimen consists of multiple irregular and elongated fragments of pink-boothe soft tissue that in aggregate measure 2.2 x 1.8 x 0.2 cm. The specimen is totally submitted in one cassette. / AM:juliana 01/02/21 TC:5 [facility]: [id number]
[2021-01-06 16:11] LABS: HPV Reflexed? NOT INDICATED
== END ==
PROVIDERS: PCP Family Medicine; Visit Provider Obstetrics & Gynecology
DX: N92.0 Excessive and frequent menstruation with regular cycle (principal); Z12.4 Encounter for screening for malignant neoplasm of cervix
CPT/HCPCS: 88175; 88305; G0145

== ENCOUNTER 2021-03-17 05:22 | Day surgery (SDC) | payer BC, SELFPAY ==
[2021-03-12 17:15] LABS: Hematocrit 28.3 % (37-47); Mean Corp Hgb Conc 31.8 g/dL (32-36); Mean Platelet Vol. 9.7 fl (6.2-12.0); Platelet Count 358 K/mm3 (150-450); RBC Distribution Width CV 16.5 % (11.6-14.6); RBC Distribution Width SD 51.6 fl (35.1-43.9); Red Blood Count 3.33 M/mm3 (4.2-5.4); White Blood Count 5.8 K/mm3 (4.4-11.0)
[2021-03-12 17:19] LABS: International Normalized Ratio 1.1; Partial Thromboplast Time 28.6 Seconds (24.1-36.2); Prothrombin Time (Protime)PT. 13.2 SECONDS (11.7-14.9)
[2021-03-12 17:33] LABS: Creatinine, Serum 0.61 mg/dL (0.55-1.02); EST Glomerular Filtration Rate 118 mL/min (>60); Est Glom Filt Rate - Afr Amer 142 mL/min (>60); Magnesium 2.3 mg/dL (1.6-2.6)
--- NOTE | 2021-03-16 17:19 | PCM.HP.BLA ---
History and Physical Date of Admission: 03/17/21 Surgical History and Physical Nancy Mckeon, a 35 year old female 2 0 0 0 2, presents for RAVH/BS on March 17, 2021 at 7:30. -- Heavy Menses; submucous fibroids -- Nancy has heavy and prolonged menses with a lot of clots. 35 y.o. G 2 P 2 smoker of 5 cigarettes daily (ATQ). LMP of 11-26-20 that lasted until 12-19-20 and was having bleeding everyday(more then wearing a liner would hold). Adds that she feels off, like she is always bleeding. U/S shows thickened endometrium and submucous fibroid seen anterior uterus measures 2.3 x 2.2 x 2.3cm. Heavy and Long Menses which began Since after 11-01-20 . Nancy claims it started suddenly and has been present 14 months. It occurs with menses. It is located in the vagina. Nancy characterizes it to be non-radiating. Nancy characterizes the quality heavy.; Nancy characterizes the quality clots. Severity is moderate and not improving. Additional comments are: bled for nearly 3 weeks daily recently.; Additional comments are: lost about 40 lbs recently. MEDICATIONS HISTORY: Patient is also takin. Adderall 5 mg tablet, One pill by mouth once a day prn ALLERGIES: vicodin, Nervous system rxn, Amoxicillen, Unknown, black grapes, Hives, No Known Drug Allergies, Latex and Purpuric rash Infections - HPV and Chicken pox Illnesses - anxiety, ADHD Accidents - None Hospitalizations - see surgery Review of Systems: GENERAL - Denies fever, or chills SKIN - Denies skin changes EYES - Denies visual changes EARS - Denies difficulty hearing NOSE - Denies nasal congestion or bleeding MOUTH - Denies sore throat or difficulty swallowing NECK - Denies pain or swelling RESPIRATORY - Denies shortness of breath or wheezing CARDIOVASCULAR - Denies palpitations or chest pain GASTROINTESTINAL - Denies nausea, vomiting, diarrhea, constipation GENITOURINARY - Denies dysuria, frequency of urination, incontinence of urine MUSCULOSKELETAL - Denies joint or muscle pain NEUROLOGICAL - Denies localized numbness or weakness PSYCHIATRIC - Denies depression or anxiety ENDOCRINE - Denies heat or cold intolerance, weight loss or gain HEMATO-IMMUNOLOGIC - Denies excesive bleeding with cuts SOCIAL HISTORY: Alcohol Use - denies drinking Smoking - 5 cigarettes daily(ATQ) Diet - balanced Diet, caffeine < 2 drinks per day and one bottle of Mt Dew daily. Water intake tries for 4-5 bottles daily or more. Lifestyle - 11/09/15 Exercise - minimal Seat Belt Use - always Employer - [employer] Illicit Drug Use - denies use of street drugs Sexual Activity - and 3 sexual partners in the past. Residence - lives with Place of - [place], [place] Spouse-Sig Other Name - Genaro Mckeon Spouse-Sig Other Occupation - [employer] Spouse-Sig Other Phone No - [phone] Children Name(s) - Yu Anand (20) Control - Prior Tubal FAMILY HISTORY: Maternal history of Breast cancer. Maternal Grandmother: DM II. Paternal Grandmother: DM II. Paternal Grandfather: Colon Cancer. Maternal Aunt: Ovarian Cancer. MENSTRUAL HISTORY: LMP Known?- DefiniteAmount/Duration - excess amount, LMP - 03/08/21, Age Onset Menarche - 13 PAST PREGNANCIES: Total Pregnancies - 2; Full Term Pregnancies - 2; Premature - 0; Abortions, Induced - 0; Abortions, Spontaneous - 0; Ectopics - 0; Multiple Births - 0; Living Children - 2 SURGICAL HISTORY: 1. excision of cat scratch fever from neck 2. 12/25/2005 LEEP ; Nery Bacon M.D. - abnl paps 3. 11/02/2019 and Tubal ; Tommy Alcaraz M.D. 4. 06/28/2018 ; Nery Bacon M.D. 5. teeth extraction PHYSICAL EXAM BP- 114/66 Sitting, Right arm, regular cuff Weight- 111.0 lbs Height- 67.5 inch BMI:17.16 CONSTITUTIONAL - NAD, well nourished, and well developed SKIN - No rash, lesions, or ulcers HEENT - Normocephalic, PERRLA, EOMI NECK - No nodes, no nuchal rigidity and thyroid normal size and texture LYMPH NODES - Palpation of lymph nodes in neck and groins within normal limits LUNGS - CTA x2 without wheezes, crackles or rales CARDIAC - Regular rate and rhythm without rubs, murmurs, or gallops BREAST - No dominant masses, no tenderness, no axillary adenopathy, no nipple discharge, no skin changes ABDOMEN - Without hepatosplenomegaly, distention, masses, rebound, or guarding; normal bowel sounds; no hernias EXTREMITIES - No edema or calf tenderness NEUROLOGICAL - Cranial nerves II-XII grossly intact PSYCHIATRIC - A and O to time, place, person, mood and affect External Genitial Vagina - non-tender without lesions Urethra/Urethral Meatus - non-tender Bladder - non-tender Vagina - vaginal wylie are pink and moist without loss of rugae and no evidence of atropy Cervix - without cervical motion tenderness and has normal size and features without evident lesions Uterus - normal size, mobile and no tenderness Adnexa - no tenderness, no masses and mobile ASSESSMENT/PLAN: 1. Premenopause Menorrhagia; Submucous Fibroids EMBx OK. Discussed options for treatment at length including intermittent progesterone withdrawal versus proceeding with an endometrial ablation or hysterectomy. Pt desires proceeding with RAVH/BS. Discussed RBAs and all questions answered.
[2021-03-17] VITALS (11 sets, daily range): BP systolic 92–118; BP diastolic 55–67; PULSE 16–102; RESP 10–18; TEMP 35.7–37.3; O2SAT 98–100; BMI 16.4
[2021-03-17] MEDS: Acetaminophen 500 MG Tablet 1000 MG PO (06:13)
[2021-03-17] MEDS: Gabapentin 600 MG Tablet PO (06:13)
[2021-03-17] MEDS: Lactated Ringers 1,000 ML 40 ML IV ×2 (06:26→11:34)
[2021-03-17 07:20] LABS: Bedside Glucose 96 mg/dL (70-110)
[2021-03-17] MEDS: Lactated Ringers 1,000 ML 100 ML IV (07:30)
--- NOTE | 2021-03-17 07:30 | HYST_PTH ---
PATIENT: ALEKS GREGORIO LOC: [facility] [place] U#:[id number] AGE/SX: 35/F ROOM: RE03/17/[address]: Dr. Tommy Alcaraz MD : 1985 BED: DIS: 03/17/2021 SPEC #: [id number] RECD: 03/17/21 10:48 STATUS: TIMOTHY PEACOCK #: [id number] KARINA: 03/17/21 07:[address]: Tommy Alcaraz DEPT: SURGICAL PATHOLOGY RECD BY: Elicia Warren ENTERED: 03/17/21 10:55 SP TYPE: HYSTERECT OTHR DR: Dr. Ramila Arambula MD Tissues: Uterus, NOS Procedures: Surgery Specimen Level V HEADER OPERATION: ERAS, Lap robotic hysterectomy and bilateral salpingectomy PRE-OP DIAGNOSIS: Premenopausal menorrhagia, submucous fibroids TISSUE SUBMITTED: Uterus, bilateral fallopian tubes MICROSCOPIC DIAGNOSIS Uterus and bilateral fallopian tubes, hysterectomy and bilateral salpingectomy: Cervix ? chronic inflammation. Endometrium ? proliferative endometrium. Myometrium ? an intramural leiomyoma (2.5 cm in greatest dimension). Bilateral fallopian tubes - no pathologic diagnosis. SJ:rg 03/18/2021 MICROSCOPIC DESCRIPTION Slides are reviewed. GROSS DESCRIPTION Received in fixative is one container labeled with the patient's name and designated uterus, bilateral fallopian tubes. The specimen consists of a hysterectomy specimen consisting of uterus with cervix and attached bilateral fallopian tubes. The uterus with cervix weighs 127 gm and measures 10.5 x 7 x 4.5 cm. The serosal surface is boothe, glistening. The external os is oval in contour. The ectocervical mucosa is unremarkable. The endocervical canal measures 3.5 cm in length and the endocervical mucosa is unremarkable. The triangular endometrial cavity measures 5 cm in length and up to 3 cm in width. The endometrium is boothe, glistening without any mass lesion and measures 0.2 cm in thickness. Sections of the uterine wall reveal a nodular mass measuring 2.5 cm in greatest dimension. Sections of this mass reveals boothe whorled cut surfaces without areas of hemorrhage, necrosis or cystic degeneration. The uterine wall measures up to 2.2 cm in thickness. The right fallopian tube measures 8.5 cm in length and 0.5 cm in diameter. The fimbrial end is identified. Sections reveal unremarkable cut surfaces. A Filshie clip is noted close to the proximal end and appears intact. The left fallopian tube is similar appearance to right and measures 8 cm in length and 0.6 cm in diameter. Pathology Manager sections are submitted in ten cassettes as follows: 1 - anterior cervix, 2 - posterior cervix, 3 & 4 - anterior uterine wall, 5 & 6 - posterior uterine wall, 7 & 8 - nodular mass, 9 - right fallopian tube, 10 - left fallopian tube. / GLENROY:juliana 03/17/21 TC:1 CPT: 32365
[2021-03-17] MEDS: Cefazolin 2 GM in 0.9% Normal Saline 100 ML IV (07:32)
--- NOTE | 2021-03-17 07:32 | SUR.PREOP ---
0.5 mg of Versed given per Dr. Nirmal Alcaraz written order. This was given by this nurse, and the remainder of the vial was given to Genaro Jimenez nurse automobile rental representative to use back in the case.
--- NOTE | 2021-03-17 07:38 | PCM.OPRPT ---
Report of Operation Date of Procedure: 03/17/21 Pre-Operative Diagnosis: Menorrhagia, Submucous Fibroids Post-Operative Diagnosis: Menorrhagia, Submucous Fibroids Surgery/Procedure Performed:: Robotic Assisted Vaginal Hysterectomy and Bilateral Salpingectomy Description of Surgical Findings:: 10 cm uterus with normal-appearing fallopian tubes and ovaries. 2 cm cervical fibroid noted. Evidence of prior tubal ligation with Filshie clips. Surgeon: Tommy Alcaraz software engineer advisor: Jered Jarrett Type of Anesthesia: General (Endotracheal) Anesthesiologist: Genaro Jimenez Specimen's removed: Uterus and bilateral fallopian tubes. Drains: Dowling to straight drain (removed in end of case) Estimated Blood Loss (mL): Minimal Fluids Replaced: Crystalloid Description of Procedure: Surgeon: Tommy Alcaraz MD, FACOG Indication: This is a 35 year old patient who has been having problems with extremely heavy periods and submucous fibroids. Conservative measures have not been helpful. The patient has been counseled regarding the risks, benefits and alternatives of this procedure including the possibility of bleeding, infection, and injury to surrounding structures such as bowel bladder and all questions were answered. She understands that if BSO is needed that she will need to be on HRT for an indefinite period of time. Procedure: Pt taken to the operating room where, after induction of general anesthesia, the patient was prepped and draped in the usual sterile fashion and placed on a non-slip Huggy-u-vac device. Trendelenburg test was satisfactory. Bladder was drained of urine with a Dowling catheter which was left in place. Anterior cervix grasped and cervix was dilated to about 3-4 mm. Uterus sounded to 9 cms. 0-Vicryl suture was placed at the 3:00 and 9:00 position of the cervix. A medium [employer] Instructor Uterine Manipulator was then placed in the uterus and attention was turned to the laparoscopic portion of the procedure. Ropivocaine 0.5% was injected approximately 1-2 cm superior to the umbilicus and an 8 mm robotic camera port was introduced directly with intraperitoneal placement confirmed with CO2 insufflation. 8 mm robotic side ports were introduced under direct visualization approximately 10 cm lateral and 2 cm inferior to the umbilical port. A 5 mm left upper quadrant port was introduced and airseal insufflation with CO2 was started. The above findings were noted. Robot was docked without difficulty and attention turned to the robotic portion of the procedure. Approximately 30 cc of Ropivicaine was used. Bilateral mesosalpinx were ligated with 35 melton bipolar coagulation to the level of the round ligament. The posterior aspect of the cervix was identified and then opened for about 1 cm using 25 watt monopolar cautery identifying the uterine manipulating device which had been placed vaginally. Bladder flap was opened and divided to the level of the round ligaments using monopolar cautery. Progressive bites were then ligated on each side of the cervix with 35 melton bipolar cautery to the uterine arteries. The anterior vaginal mucosa was entered and cervix circumscribed with monopolar cautery. Uterus and attached tubes were removed through the vagina. Vaginal cuff was closed first with 0-Vicryl Gretta stitches placed at each angle followed by closure of the mid-cuff with 0-Monocryl V-lock suture in two layers. Pelvis was copiously irrigated with saline and the right ureter was noted to peristalse. Robot was undocked and trocars were removed with as much gas as possible. Incisions were closed with 4-0 Monocryl subcuticular sutures and incisions covered with steri-strips. The patient tolerated the procedure well and was taken to the recovery room in satisfactory condition. Sponge, instruments and needle counts were all correct. There were no apparent complications of the surgery. Ancef 2 gms IV was given prior to the procedure. Estimated Blood Loss: Minimal Specimen to Pathology: Uterus and bilateral fallopian tubes Grafts/Implants Used: None Complications None Admit VTE Documentation VTE Present on Admission: Yes VTE Mechan Device Prophylaxis: SCD's
--- NOTE | 2021-03-17 07:41 | PCM.DC ---
Discharge Instructions Diet Discharge Diet: No restrictions Activity Discharge Activity: May Shower and May Take a Tub Bath May resume sexual activity in: 6 weeks (nothing in the vagina.) Lifting Restrictions: 25 pounds for 6 weeks. Additional Activity Instructions:: Nothing in the vagina for 6 weeks please; no lifting more than 20-25 lbs for 6 weeks. Use Ibuprophen 800 mg orally every 8 hours as needed for pain. Can also add Tylenol 1000 mg every 8 hours if needed for pain. If Ibuprophen and Tylenol are not effective then use the Oxycodone but keep in mind it can cause serious constipation issues. Drink lots of water. Call if bleeding more than a pad per hour. Use the colace as constipation is a big issue after this type of surgery. Steps and walking are OK. Activity is encouraged but do not over do it !! Dressing / Incision Call your doctor if your incision/area has: Continuous Slow Oozing, Sudden Increased Bleeding, Increased Pain/ Swelling, Increased Redness and Foul Smelling Discharge Call your doctor if you observe: Fever of 101 or Higher, Inability to urinate, Inability to have a bowel movement, Using more than 1 pad per hour and - (Some vaginal bleeding may be noted for up to 4-8 weeks.) Cleanse incision/area with: - (Let the soapy water run over your incision, rinse and pat dry.) Additional Dressing/Incision Instructions:: The white strips (Steri Strips) on your incisions will fall off on their own. If they fall off and it bothers you it is okay to put Band-Aids across the incisions. Follow Up Care Please Follow Up With: Tommy Alcaraz MD When: Call [phone] for an appointment to be seen in 2 weeks. Test Results: Test results from this visit will be discussed in further detail at your follow-up appointment, if applicable. Discharge Plan Admission Primary Reason for Your Visit: Robotic Vaginal Hysterectomy Attending Provider: Tommy Alcaraz Primary Care Provider: Ramila Arambula Discharge Orders/Prescriptions Prescriptions: New docusate sodium 100 mg tablet 100 mg PO BID PRN (Reason: constipation) Qty: 60 RF: 1 oxycodone 5 mg capsule 5 mg PO Q6H PRN (Reason: pain (scale score 7-10)) 7 Days Qty: 10 RF: 0 Continued acetaminophen [Tylenol] 325 MG tablet 325 - 650 mg PO Q4H PRN PRN (Reason: PAIN OR FEVER >100.4F) RF: 0 dextroamphetamine-amphetamine [Adderall XR] 5 mg capsule,extended release 24hr 5 mg PO DAILY RF: 0 Referrals / Follow Up: Ramila Arambula MD [Primary Care Provider] - Disposition Disposition (needs filled in before D/C Order can be placed): Home, Self Care
[2021-03-17] MEDS: Ketorolac 30 MG/ML Syringe IV (10:00)
[2021-03-17] MEDS: Ropivacaine 0.5% 30 ML Vial (10:12)
[2021-03-17] MEDS: Ondansetron 4 MG/2 ML Vial IV (10:55)
== END 2021-03-17 17:28 | disposition home or self-care (01) ==
LOC: SDC 05:23 → AC 05:23
PROVIDERS: Anesthesiology; PCP Family Medicine; Referring Provider Obstetrics & Gynecology; Visit Provider Obstetrics & Gynecology
PROC: 0UT90ZZ Resection of Uterus, Open Approach (ICD-10-PCS; CPT 58571; principal; 2021-03-17 07:10)
DX: D25.1 Intramural leiomyoma of uterus (principal); N92.4 Excessive bleeding in the premenopausal period; D25.0 Submucous leiomyoma of uterus; F41.9 Anxiety disorder, unspecified; F90.9 Attention-deficit hyperactivity disorder, unspecified type; G25.81 Restless legs syndrome; Z79.899 Other long term (current) drug therapy
CPT/HCPCS: 00840; 58571; S2900; 36415; 82565; 82962; 83735; 85027; 85610; 85730; 86850; 86900; 86901; 87426; 88307; J7120; A4216; J2405; J3475

== ENCOUNTER → 2024-11-13 | Outpatient (CLI) | payer BC, SELFPAY ==
[2024-11-13 18:44] LABS: AST(SGOT) 21 U/L (<=31); Alanine Aminotransfer ALT/SGPT 9 U/L (<=34); Albumin, Serum 4.4 g/dL (3.5-5.0); Alkaline Phosphatase 67 U/L (35-104); Anion Gap 10 (5-15); BUN 7 mg/dL (4-19); BUN/Creat Ratio 8.0 RATIO (10-20); Calcium,Total 9.2 mg/dL (7.6-11.0); Carbon Dioxide 24.9 mmol/L (21.0-32.0); Chloride 102 mmol/L (98-108); Cholesterol 190 mg/dL (<=200); Follicle Stimulating Hormone 29.1 mIU/mL; Globulin 2.8 g/dL (2.2-4.2); Glucose 83 mg/dL (70-99); Low Density Lipoprotein Calc. 111 mg/dL; Potassium 3.7 mmol/L (3.3-5.1); Triglycerides 77 mg/dL; Very Low Density Lipoprotein 15 mg/dL (5-40); cholesterol:hdl ratio screen 2.98
== END | disposition home or self-care (01) ==
LOC: MFPLAB 15:52
DX: Z13.1 Encounter for screening for diabetes mellitus (principal); N95.1 Menopausal and female climacteric states
CPT/HCPCS: 36415; 80053; 80061; 83001; 83002; 83036